=== PATIENT | female | born 1940 ===

== ENCOUNTER 2019-01-24 06:04 | Inpatient (IN) | payer OTHER ==
[2019-01-24] MEDS ORDERED: fentaNYL CITRATE 250 MCG/5 ML VIAL ONE (07:09)
[2019-01-24] MEDS ORDERED: PROPOFOL 20 ML ONE ×14 (07:09→12:03)
[2019-01-24] MEDS ORDERED: VANCOMYCIN 1,000 MG VIAL (RESTRICTED TO ID ONLY) ONE (07:10)
[2019-01-24] MEDS ORDERED: SUCCINYLCHOLINE CHLORIDE 200 MG/10 ML SYRINGE ONE (07:10)
[2019-01-24] MEDS ORDERED: ceFAZolin SODIUM 1 GM VIAL ONE ×3 (07:10→17:50)
[2019-01-24] MEDS ORDERED: TRANEXAMIC ACID 1000 MG/10 ML VIAL ONE ×2 (07:10→10:12)
[2019-01-24] MEDS ORDERED: DEXAMETHASONE SOD PHOSPHATE 4 MG/1 ML VIAL ONE (07:10)
[2019-01-24] MEDS ORDERED: ONDANSETRON 4 MG/2 ML VIAL ONE (07:10)
[2019-01-24] MEDS ORDERED: ROCURONIUM BROMIDE 50 MG/5 ML SYRINGE ONE (07:10)
[2019-01-24] MEDS ORDERED: LIDOCAINE HCL/PF 2% SDV 5ML VIAL ONE (07:10)
[2019-01-24] MEDS ORDERED: BENZOIN TINCTURE SWABSTICK TP ONE ×2 (07:34→12:39)
[2019-01-24] MEDS ORDERED: THROMBIN (BOVINE) 5,000 UNIT VIAL TP ONE ×2 (07:35→09:09)
[2019-01-24] MEDS ORDERED: HEPARIN NA (PORCINE) 5,000 UNITS/ML 1ML VIAL ONE (07:36)
[2019-01-24] MEDS ORDERED: VANCOMYCIN 1,000 MG VIAL (RESTRICTED TO ID ONLY) IVPB ONE (07:45)
[2019-01-24] MEDS ORDERED: ceFAZolin SODIUM 1 GM VIAL IVPB ONE (08:20)
[2019-01-24] MEDS ORDERED: NEOSTIGMINE METHYLSULFATE 0.5 MG/1 ML - 10 ML MDV ONE (10:04)
[2019-01-24] MEDS ORDERED: GLYCOPYRROLATE 0.2 MG/1 ML VIAL ONE (10:04)
[2019-01-24] MEDS ORDERED: EPHEDRINE SULFATE/0.9% NACL/PF 50 MG/10 ML SYRINGE NR ONE (10:52)
--- NOTE | 2019-01-24 11:50 | PN ---
Progress Note (short form) - Note Progress Note: 78F POD #0 s/p: 1. L1, L2, L3, L4, L5, S1 laminectomies 2. L1, L2, L3, L4, L5, S1 osteotomies (facetectomies) 3. L1-S1 posterior instrumentation 4. T11-S1 posterolateral arthrodesis 5. Durotomy repair x 2 6. Bone allograft 7. Bone autograft 8. Bone marrow aspiration 9. Complex wound closure (30cm) -Admit to ICU post-op. -Pain control: per anesthesia team; NO NSAID's. -DVT PPx: -Mechanical only: VENTURA's, SCD's. -Chemical: None. -Incentive spirometry q15 min. -NPO until flatus. -[place] care; d/c when ambulating. -Post-op Ancef x 3 doses. -PT/OT/Rehab, OOB. -WBAT B/L LE. -No bending, lifting (>5 lbs), or twisting for 9-12 months. -Care per ICU & medical hospitalist Dr. Garcia. -Discharge planning: f/u 7-10 days after discharge at [facility] [place] office; call for appointment; . -Will follow. Teo Harmon MD (Orthopaedic Surgery).
--- NOTE | 2019-01-24 11:53 | OP ---
Operative Note - Note: Operative Date: 01/24/19 Pre-Operative Diagnosis: Severity of illness: 4. 1. Adjacent level disease. 2. Previous lumbar spinal fusion. 3. Multilevel spinal stenosis. 4. Spondylolisethesis. 5. Radiculopathy. 6. Claudication. 7. Neurological decline; fall risk Operation: 1. Removal of hardware. 2. Inspection of fusion mass. 3. L1, L2, L3 , L4, L5, S1 laminectomies. 4. L1, L2, L3, L4, L5, S1 osteotomies ( facetectomies). 5. L1-S1 posterior instrumentation. 6. T11-S1 posterolateral arthrodesis. 7. Durotomy repair. 8. Bone allograft. 9. Bone autograft. 10. Bone marrow aspiration. 11. Complex wound closure (30cm) Post-Operative Diagnosis: Same as Pre-op Surgeon: Teo Harmon Pot Liner: Tai Harmon Anesthesiologist/DEVELOPMENTAL EDUCATION INSTRUCTOR: Allyssa Marie Anesthesia: General Specimens Removed: Bone, soft tissue, old hardware Estimated Blood Loss (mls): 1,070 Drains & Tubes with Location: 1 x superficial HemoVac Blood Volume Replaced (mls): 375 (Cell Saver) Fluid Volume Replaced (mls): 2,000 (Crystalloid) Operative Report Dictated: Yes
[2019-01-24] MEDS ORDERED: SODIUM CHLORIDE 0.9% P/F 10 ML VIAL IJ ONE (11:55)
[2019-01-24] MEDS ORDERED: BUPIVACAINE LIPOSOME/PF (EXPAREL) 266 MG/20 ML VIAL ONE (12:10)
[2019-01-24] MEDS ORDERED: BUPIVACAINE HCL/PF 0.25% (2.5MG/ML) 10 ML VIAL ONE (12:12)
[2019-01-24] MEDS ORDERED: BUPIVACAINE LIPOSOME/PF (EXPAREL) 266 MG/20 ML VIAL NR ONE (12:15)
[2019-01-24] MEDS ORDERED: BUPIVACAINE HCL/PF 0.25% (2.5MG/ML) 10 ML VIAL IJ ONE (12:15)
[2019-01-24] MEDS ORDERED: ONDANSETRON 4 MG/2 ML VIAL IVPUSH PRN ×2 (12:31→13:27)
[2019-01-24] MEDS ORDERED: LACTATED RINGERS SOLUTION 1,000 ML IV SCH (12:45)
[2019-01-24] MEDS ORDERED: HYDROmorphone *PCA* 10MG/50ML DISP.SYRIN PCA SCH (14:30)
--- NOTE | 2019-01-24 14:30 | OP ---
DATE OF OPERATION: DATE OF DICTATION: 01/24/2019 SURGEON: Teo Harmon MD LEATHER FINISHER: Tai Harmon MD PREOPERATIVE DIAGNOSIS: Lumbar spine stenosis L3-4 and L2-3 with associated kyphosis and segmental instability. POSTOPERATIVE DIAGNOSIS: Lumbar spine stenosis L3-4 and L2-3 with associated kyphosis and segmental instability. OPERATION PERFORMED: 1. Removal of hardware. 2. Inspection of fusion mass. 3. Left laminectomy with undercutting superior facetectomy L2, 3, 4, and 5. 4. Right-sided laminectomy with undercutting and facetectomy L2, 3, 4, 5, S1. 5. Incidental durotomy and repair. 6. Escoto Price osteotomy L2, 3. 7. Pedicle screw instrumentation L1-S1. 8. Posterolateral arthrodesis L1-S1 left and right-hand side. 9. Use of bone marrow aspirate concentrate and biplanar fluoroscopy. 10. Use of Cell Saver bone marrow aspirate concentrate. 11. Use of autologous bone graft from same wound, liquid sugar fortifier with allograft. ANESTHESIA: General. BLOOD LOSS: Approximately 1 L. Cell Saver blood was given back. Patient remained stable throughout. DESCRIPTION OF PROCEDURE: Patient correctly identified. Brought to the operating room. Lumbar spine with prepped and draped in a routine manner with Betadine scrub solution, wiped off with alcohol, DuraPrep applied. A time-out was called. Imaging was available for intraoperative evaluation. Kefzol 2 g, vancomycin 1 g was given preoperatively, and 1 g of tranexamic acid and then this was repeated again about an hour and a half later. As the Ancef was repeat, another gram given intraoperatively at the time of seating the pedicle screws. With the patient in prone position, all appropriate bony points padded. The lumbosacral was prepped, draped in the routine manner with Betadine scrub solution, wiped off with alcohol, DuraPrep applied and then a window drape applied. A midline incision was utilized. The dissection was taken through the skin, subcutaneous tissue to the tip of the spinous process exposing the bone extensively from T12 all the way down to S1. The dissection was taken out laterally, that is subperiosteally down the spinous process lamina, over the facet joints, out to the transverse process, and out to the tip of the transverse processes. The entire region, both in the intra transverse plane both left and right side, was packed with sponges. Hemostasis was achieved as best we could as we went along. A severe stenosis was noted as per the imaging at L3-4 and 2-3. We elected, as had been planned, to revise the laminae of L4 and L5 to gain access adequately to the entire thecal sac. The thecal sac was exposed completely from L1-S1 in the following manner. We used a central decompression of laminectomy using Leksell rongeurs and Kerrison upcuts. Once the central portion of the dura was exposed , the lateral sides of the vertebral canal were imploded inward this because of the adherence stuck down dura to the bone bed. Longitudinal osteotomies were performed splitting each level, the pars intra-articularis as well as the appropriate inferior facets to expose the upright facets. This enabled us to do a very adequate decompression from L1-S1 both left and right-hand side. Two small, 1-mm, tears of the dura occurred at about the level of the L5-S1 disk. This was as a result of the adherence of thick scar tissue onto the dura. These were repaired very adequately with a single 4-0 Nurolon suture at this level and then Valsalva maneuver performed revealed a complete seal of both of the repair of the sides thus completing the incidental durotomy and repair. Now that the decompression had been completely performed and the entire theca was free, pedicle screws were seated from L1 right down to S1. The original screws had been removed. This was an old Danek system. The fusion mass had been inspected, and it was a little concerned about the solidity of the actual fusion mass. It was not quite as solid as I expected, and for that reason, we extended the fusion from L1 all the way down to S1. Pedicle screw instrumentation combined with fixation over the rods into the tulips. Once the screws had been tested with intraoperative neural monitoring, the screw seating with the utilization of anatomic guidelines combined with lateral fluoroscopic x- rays to ensure that the correct seating of the pedicle screws was noted. Neural monitoring revealed completely safe levels. All screws up to around about 20 except in the left L5, which was at 12. Those rods were contoured appropriately, fixed to the tulips with appropriate caps. Torque device was utilized to tightened the caps onto the rods. One Crosslink applied. This gave a very rigid, solid fixation. Once this had been completed, the posterolateral arthrodesis was then completed by packing the intra transverse plane both left and right hand side with autologous and expanded allograft chips with some putty combined with demineralized strips of bone, which were soaked in stem cells harvested from the left posterior ilium, that is BMAC , bone marrow aspirate concentrate, aspirating 120 mL spun down for the CD34 cells. These layered down with the bone graft in the intra transverse plane accordingly. No complications. The wounds were thoroughly lavaged throughout the operation. The retractors were released every 15-20 minutes. The dura was once again re- inspected and found to be completely dry. We placed some Surgicel combined with fibrin glue onto the epidural space just to ensure that our suture lines were solidly held. This was a 30cm complex wound closure in 4 layers, muscle 1 Vicryl interrupted sutures, fascia 1 Vicryl interrupted sutures, subcutaneous 1-0 and 2-0 Vicryl in layers, and skin 3-0 Monocryl with Steri-Strips. Drainage, 1/2-inch Hemovac brought out superiorly x1. Overall comment, difficult problem and case in terms of the thecal stenosis at 2 levels but found to be 3 levels. All went well. No complications. Patient will be nursed in the ICU. MD MEL Copeland/[id number] MTDD
[2019-01-24] MEDS ORDERED: HYDROmorphone *PCA* 10MG/50ML DISP.SYRIN ONE (14:33)
[2019-01-24 14:51] LABS: HEMATOCRIT 30.5 % (32.4-45.2); HEMOGLOBIN 10.3 GM/dL (10.7-15.3); MCH 32.3 pg (25.7-33.7); MCHC 33.7 g/dl (32.0-36.0); MEAN CELL VOLUME 95.9 fl (80-96); MEAN PLT VOLUME 8.4 fl (7.5-11.1); PLATELET COUNT 157 K/MM3 (134-434); RBC 3.18 M/mm3 (3.60-5.2); RDW 13.3 % (11.6-15.6); WHITE BLOOD COUNT 18.3 K/mm3 (4.0-10.0)
[2019-01-24] MEDS ORDERED: ACETAMINOPHEN INJECTION 100 ML IVPB ONE (15:09)
[2019-01-24] MEDS: ACETAMINOPHEN 1000 MG/100 ML VIAL (NON FORMULARY) IVPB PRN ×2 (15:14→23:11)
[2019-01-24 15:15] LABS: BLOOD UREA NITROGEN 23.4 mg/dL (7-18); CREATININE 1.5 mg/dL (0.55-1.3)
[2019-01-24] MEDS: LACTATED RINGERS SOLUTION 1,000 ML IV SCH ×2 (15:30→23:11)
[2019-01-24] MEDS: CEFAZOLIN 1 GM/D5W 1 GM/50 ML BAG IVPB SCH ×2 (18:41→23:29)
--- NOTE | 2019-01-24 19:08 | CONSULT ---
Consult Consult Specialty:: IM Reason for Consultation:: post-op medical management - History Source History Provided By: Patient, Family Member - Alcohol/Substance Use Hx Alcohol Use: No - Smoking History Smoking history: Never smoked Home Medications - Allergies Allergies/Adverse Reactions: Allergies Allergy/AdvReac Type Severity Reaction Status Date / Time No Known Drug Allergies Allergy Verified 01/21/19 14:04 strawberries Allergy "itchy" Uncoded 01/21/19 14:04 - Home Medications Home Medications: Ambulatory Orders Aspirin Coated [Ecotrin -] 81 mg PO DAILY 01/21/19 Hydrochlorothiazide [Hctz -] 12.5 mg PO DAILY 01/21/19 Metoprolol Succinate 50 mg PO DAILY 01/21/19 Oxycodone HCl/Acetaminophen [Oxycodone-Acetaminophen 5-325] 1 each PO PRN PRN Cyanocobalamin [Vitamin B12 -] 1,000 mcg PO DAILY 01/24/19 Docusate Sodium [Colace] 100 mg PO DAILY 01/24/19 Famotidine [Pepcid] 40 mg PO DAILY 01/24/19 Folic Acid 0.8 mg PO DAILY 01/24/19 Multivit-Min/Iron/Folic/Lutein [Centrum Silver Women Tablet] 1 each PO DAILY Family Disease History - Family Disease History Family History: Unremarkable Review of Systems - Review of Systems Constitutional: reports: Lethargy Eyes: reports: No Symptoms HENT: reports: No Symptoms Neck: reports: No Symptoms Cardiovascular: reports: No Symptoms Respiratory: reports: No Symptoms Gastrointestinal: reports: No Symptoms Genitourinary: reports: No Symptoms Musculoskeletal: reports: Back Pain Integumentary: reports: No Symptoms Neurological: reports: No Symptoms Hematology/Lymphatic: reports: No Symptoms Psychiatric: reports: No Symptoms Pain Intensity: 8 Physical Exam Vital Signs: Vital Signs Temperature 97.4 F L 01/24/19 18:09 Pulse Rate 79 01/24/19 18:09 Respiratory Rate 16 01/24/19 18:09 Blood Pressure 105/53 L 01/24/19 18:09 O2 Sat by Pulse Oximetry (%) 100 01/24/19 18:00 Constitutional: Yes: Well Nourished, Mild Distress Eyes: Yes: WNL HENT: Yes: WNL Neck: Yes: WNL Cardiovascular: Yes: WNL Respiratory: Yes: WNL Gastrointestinal: Yes: Hypoactive Bowel Sounds Renal/: Yes: WNL Musculoskeletal: Yes: Back Pain, Joint Stiffness Extremities: Yes: WNL Edema: No Peripheral Pulses WNL: Yes Integumentary: Yes: WNL Wound/Incision: Yes: Clean/Dry, Well Approximated Neurological: Yes: WNL ...Motor Strength: WNL Psychiatric: Yes: WNL Labs: CBC, BMP 01/24/19 13:45 01/24/19 13:45 Assessment/Plan 78 yo lady with PMH of Previous lumbar spinal fusion, Multilevel spinal stenosis , Spondylolisethesis, Radiculopathy, Claudication now S/P Operation: 1. Removal of hardware. 2. Inspection of fusion mass. 3. L1, L2, L3 , L4, L5, S1 laminectomies. 4. L1, L2, L3, L4, L5, S1 osteotomies ( facetectomies). 5. L1-S1 posterior instrumentation. 6. T11-S1 posterolateral arthrodesis. 7. Durotomy repair. 8. Bone allograft. 9. Bone autograft. 10. Bone marrow aspiration. 11. Complex wound closure . cont pain management. incentive spirometry. -GI, DVT prophylaxis. as per avi no chemical prophylaxis. VENTURA's. -leucocytosis: probably reactive to pain. afebrile. will monitor. -anemia: acute on chronic from CKD. post-op anemia contributing? keep Hb>8. will monitor. -YUMI on CKD III: avoid NSAIDs and nephrotoxins when possible. -HTN: on toprol XL 50 mg daily. -ID: oscar-operatively covered with cefazolin. -NPO until has flatus -PT/OT/OOB as tolerated -ICU care appreciated. likely will be able to downgrade to regular floor tomorrow. -assessment and plan discussed with pt and family at bedside. labs and meds reviewed.
--- NOTE | 2019-01-24 22:14 | CONSULT ---
Consultation: CONSULT SERVICE: ICU Resident HISTORY OF PRESENT ILLNESS: Briefly 78yo F with PMHx previous lumbar fusion, lumbar radiculopathy, claudication of lower extremities who presents today s/p lumbar spine surgery with durotomy repair and hardward removal. Pt's EBL was 1,070cc with 375cc of CellSaver with 2L of crystalloid. Pt reports having chronic weakness in her upper extremities which are stable since prior to her surgery with R>L in weakness at baseline. Pt reports her pain is well controlled at this time and is using the WINDING MACHINE OPERATOR pump. Pt denies any nausea, weakness, numbness/tingling in her lower extremities or other complaints at this time. REVIEW OF SYSTEMS: As per HPI PHYSICAL EXAMINATION Vital Signs - 24 hr 01/24/19 01/24/19 01/24/19 07:12 13:26 13:40 Temperature 97.8 F 97.5 F L Pulse Rate 61 79 77 Respiratory 20 14 16 Rate Blood Pressure 147/73 85/44 L 120/64 O2 Sat by Pulse 98 99 100 Oximetry (%) 01/24/19 01/24/19 01/24/19 13:55 14:10 14:25 Temperature Pulse Rate 75 66 88 Respiratory 14 14 16 Rate Blood Pressure 108/66 111/60 94/58 L O2 Sat by Pulse 100 99 99 Oximetry (%) 01/24/19 01/24/19 01/24/19 14:35 14:40 14:55 Temperature Pulse Rate 72 72 99 H Respiratory 16 16 16 Rate Blood Pressure 114/71 114/71 138/70 O2 Sat by Pulse 100 100 100 Oximetry (%) 01/24/19 01/24/19 01/24/19 15:05 15:10 15:25 Temperature Pulse Rate 99 H 78 94 H Respiratory 16 16 14 Rate Blood Pressure 138/70 107/75 99/64 O2 Sat by Pulse 99 100 100 Oximetry (%) 01/24/19 01/24/19 01/24/19 15:35 15:50 16:20 Temperature Pulse Rate 80 69 72 Respiratory 16 14 16 Rate Blood Pressure 95/58 L 90/77 93/64 O2 Sat by Pulse 100 99 99 Oximetry (%) 01/24/19 01/24/19 01/24/19 16:50 17:20 17:35 Temperature Pulse Rate 70 68 78 Respiratory 16 14 16 Rate Blood Pressure 101/63 108/54 L 100/50 L O2 Sat by Pulse 99 99 100 Oximetry (%) 01/24/19 01/24/19 18:00 18:09 Temperature 97.8 F 97.4 F L Pulse Rate 80 79 Respiratory 16 16 Rate Blood Pressure 95/58 L 105/53 L O2 Sat by Pulse 100 Oximetry (%) GENERAL: NAD, Awake, alert, and fully oriented HEENT: NC/AT, ANA PAULA, EOMI, MMM NECK: No JVD LUNGS: CTA bilaterally however poor inspiratory effort. No wheezes, and no crackles. No accessory muscle use. HEART: RRR, normal S1 and S2 without murmur ABDOMEN: Soft, Nt/ND, hypoactive bowel sounds, no guarding, MUSCULOSKELETAL: Surgical dressing with hemovac in place on back EXTREMITIES: 2+ pulses, warm, well-perfused. No calf tenderness. No peripheral edema. NEUROLOGICAL: Strength 4/5 in LUE however strength 3+/5 in RUE (baseline per patient), b/l LExt with strength 3/5 however limited due to pain at this time, sensation intact throughout PSYCHIATRIC: Cooperative. Good eye contact. Appropriate mood and affect. SKIN: Warm, dry, no rashes Laboratory Results 01/24/19 01/24/19 01/24/19 06:20 08:07 13:45 WBC 18.3 H RBC 3.18 L Hgb 10.3 L Hct 30.5 L MCV 95.9 MCH 32.3 MCHC 33.7 RDW 13.3 Plt Count 157 MPV 8.4 Sodium Potassium Chloride Carbon Dioxide Anion Gap BUN Creatinine Est GFR (CKD-EPI)AfAm Est GFR (CKD-EPI)NonAf Random Glucose Calcium Blood Type O POSITIVE O POSITIVE Antibody Screen Negative Crossmatch IS Only See Detail 01/24/19 13:45 WBC RBC Hgb Hct MCV MCH MCHC RDW Plt Count MPV Sodium 141 Potassium 4.0 Chloride 108 H Carbon Dioxide 27 Anion Gap 6 L BUN 23.4 H Creatinine 1.5 H Est GFR (CKD-EPI)AfAm 37.74 Est GFR (CKD-EPI)NonAf 32.56 Random Glucose 171 H Calcium 8.0 L Blood Type Antibody Screen Crossmatch IS Only Active Medications Generic Name Dose Route Start Last Admin Trade Name Freq PRN Reason Stop Dose Admin Acetaminophen 1,000 mg 01/24/19 14:24 01/24/19 15:14 Ofirmev Injection - IVPB 1,000 mg Q6H PRN Administration PAIN LEVEL 7 - 10 Hydrochlorothiazide 12.5 mg 01/25/19 10:00 Hctz - PO DAILY ULIS Hydromorphone HCl 10 mg 01/24/19 14:30 01/24/19 14:35 Hydromorphone 10 Mg/50 Ml-Ns WINDING MACHINE OPERATOR 01/25/19 14:29 10 mg WINDING MACHINE OPERATOR LUIS Administration Protocol Lactated Ringer's 1,000 mls @ 125 mls/hr 01/24/19 13:30 01/24/19 15:30 Lactated Ringers Solution IV 300 mls ASDIR LUIS Administration Cefazolin Sodium 1 gm in 50 mls @ 100 mls/hr 01/24/19 17:00 01/24/19 18:41 Ancef 1 Gm Premixed Ivpb - IVPB 01/25/19 05:29 Not Given Q6H LUIS Metoprolol Succinate 50 mg 01/25/19 10:00 Toprol Xl - PO DAILY LUIS Ondansetron HCl 4 mg 01/24/19 12:31 Zofran Injection IVPUSH Q6H PRN NAUSEA AND/OR VOMITING Ondansetron HCl 4 mg 01/24/19 13:27 Zofran Injection IVPUSH Q6H PRN NAUSEA AND/OR VOMITING Ranitidine HCl 300 mg 01/25/19 10:00 Zantac - PO DAILY LUIS ASSESSMENT/PLAN: POD #0 of lumbar spine procedure Anemia of chronic disease Leukocytosis 2/2 to post-op changes Acute on chronic renal insufficiency HTN Pt is to remain flat until morning due to durotomy repair --Activity to be cleared by surgery Leukocytosis and anemia likely post-operative changes Pain control with WINDING MACHINE OPERATOR pump to continue Incentive spirometer to be ordered once able to raise from flat position Perioperative Ancef to continue Continue home dose antihypertensives: HCTZ 12.5mg qdaily Toprol XL 50mg qdaily FEN: Fluids: LR @125cc/hr while npo Electrolyte abnormalities: Monitor while NPO Nutrition: NPO while flat and advance as per surgery PPX: DVT - SCDs for now GI - Zantac Dispo: Monitor in ICU overnight due to frequent neurochecks; watch for dural leak manifesting as headache Case discussed with primary team Jorge Person, DO - IM PGY-3 Visit type - Emergency Visit Emergency Visit: No - New Patient This patient is new to me today: Yes Date on this admission: 01/24/19 - Critical Care Critical Care patient: Yes Total Critical Care Time (in minutes): 35 Critical Care Statement: The care of this patient involved high complexity decision making to prevent further life threatening deterioration of the patient 's condition and/or to evaluate & treat vital organ system(s) failure or risk of failure.
[2019-01-24] MEDS: CEFAZOLIN 1 GM in DEXTROSE 5%-WATER - 50 ML IVPB SCH (23:36)
[2019-01-25] MEDS ORDERED: ceFAZolin SODIUM 1 GM VIAL ONE (06:06)
[2019-01-25] MEDS ORDERED: DEXTROSE 5%-WATER - 50 ML IVPB ONE (06:07)
[2019-01-25] MEDS: CEFAZOLIN 1 GM in DEXTROSE 5%-WATER - 50 ML IVPB SCH (06:08)
[2019-01-25] MEDS: LACTATED RINGERS SOLUTION 1,000 ML IV SCH ×4 (06:12→19:08)
[2019-01-25 07:25] LABS: HEMATOCRIT 26.3 % (32.4-45.2); HEMOGLOBIN 8.9 GM/dL (10.7-15.3); MCH 32.6 pg (25.7-33.7); MCHC 33.7 g/dl (32.0-36.0); MEAN CELL VOLUME 96.6 fl (80-96); MEAN PLT VOLUME 8.8 fl (7.5-11.1); PLATELET COUNT 136 K/MM3 (134-434); RBC 2.72 M/mm3 (3.60-5.2); RDW 13.4 % (11.6-15.6); WHITE BLOOD COUNT 19.3 K/mm3 (4.0-10.0)
[2019-01-25 07:48] LABS: BLOOD UREA NITROGEN 28.1 mg/dL (7-18); CALCIUM 8.1 mg/dL (8.5-10.1); CREATININE 1.5 mg/dL (0.55-1.3); POTASSIUM 4.9 mmol/L (3.5-5.1)
[2019-01-25] MEDS ORDERED: RANITIDINE HCL 150 MG TABLET (FP) PO SCH (10:00)
[2019-01-25] MEDS ORDERED: HYDROCHLOROTHIAZIDE 12.5 MG CAPSULE (FP) PO SCH (10:00)
--- NOTE | 2019-01-25 10:09 | PN ---
Progress Note, Physician Chief Complaint: back pain, nausea denies chest pain, palpitations, vomiting, diarrhea - Current Medication List Current Medications: Active Medications Acetaminophen (Ofirmev Injection -) 1,000 mg IVPB Q6H PRN PRN Reason: PAIN LEVEL 7 - 10 Last Admin: 01/24/19 23:11 Dose: 1,000 mg Hydrochlorothiazide (Hctz -) 12.5 mg PO DAILY [facility] Hydromorphone HCl (Hydromorphone 10 Mg/50 Ml-Ns) 10 mg GRAIN GRADER GRAIN GRADER LUIS; Protocol Stop: 01/25/19 14:29 Last Admin: 01/24/19 14:35 Dose: 10 mg Lactated Ringer's (Lactated Ringers Solution) 1,000 mls @ 125 mls/hr IV ASDIR LUIS Last Admin: 01/25/19 06:12 Dose: 125 mls/hr Metoprolol Succinate (Toprol Xl -) 50 mg PO DAILY [facility] Ondansetron HCl (Zofran Injection) 4 mg IVPUSH Q6H PRN PRN Reason: NAUSEA AND/OR VOMITING Ondansetron HCl (Zofran Injection) 4 mg IVPUSH Q6H PRN PRN Reason: NAUSEA AND/OR VOMITING Ranitidine HCl (Zantac -) 300 mg PO DAILY [facility] - Objective Vital Signs: Vital Signs Temperature 98 F 01/25/19 06:00 Pulse Rate 85 01/25/19 06:00 Respiratory Rate 16 01/25/19 06:00 Blood Pressure 124/56 L 01/25/19 06:00 O2 Sat by Pulse Oximetry (%) 100 01/24/19 22:00 Constitutional: Yes: Well Nourished Eyes: Yes: WNL HENT: Yes: WNL Neck: Yes: WNL Cardiovascular: Yes: WNL Respiratory: Yes: WNL Gastrointestinal: Yes: WNL Genitourinary: Yes: WNL Musculoskeletal: Yes: Back Pain Extremities: Yes: WNL Edema: No Peripheral Pulses WNL: Yes Integumentary: Yes: WNL Wound/Incision: Yes: Clean/Dry, Well Approximated Neurological: Yes: WNL ...Motor Strength: WNL Psychiatric: Yes: WNL Labs: CBC, BMP 01/25/19 05:35 01/25/19 05:35 Assessment/Plan 78 yo lady with PMH of Previous lumbar spinal fusion, Multilevel spinal stenosis , Spondylolisethesis, Radiculopathy, Claudication now S/P 1. Removal of hardware. 2. Inspection of fusion mass. 3. L1, L2, L3, L4, L5 , S1 laminectomies. 4. L1, L2, L3, L4, L5, S1 osteotomies ( facetectomies). 5. L1-S1 posterior instrumentation. 6. T11-S1 posterolateral arthrodesis. 7. Durotomy repair. 8. Bone allograft. 9. Bone autograft. 10. Bone marrow aspiration. 11. Complex wound closure . cont pain management. incentive spirometry POD#1. -GI, DVT prophylaxis. as per surgejo no chemical prophylaxis. VENTURA's. -leucocytosis: probably reactive to pain. afebrile. will monitor. -anemia: acute on chronic from CKD. post-op blood loss contributing. keep Hb>8. will monitor. -YUMI on CKD III: avoid NSAIDs and nephrotoxins when possible. -HTN: on toprol XL 50 mg daily, HCTZ 12.5 mg daily. -ID: oscar-operatively covered with cefazolin. -PT/OT/OOB as tolerated -ICU care appreciated. -assessment and plan discussed with pt. labs and meds reviewed.
[2019-01-25] MEDS: ACETAMINOPHEN 1000 MG/100 ML VIAL (NON FORMULARY) IVPB PRN (10:21)
[2019-01-25] MEDS ORDERED: HYDROmorphone HCl 2 MG/ML VIAL IVPB PRN (10:45)
--- NOTE | 2019-01-25 10:51 | PN ---
Progress Note, Physician Chief Complaint: s/p L2-5 fusion under general anesthesia post op day one History of Present Illness: IV PRIMARY HEALTH ORGANISATION MANAGER for post op pain control - Current Medication List Current Medications: Active Medications Acetaminophen (Ofirmev Injection -) 1,000 mg IVPB Q6H PRN PRN Reason: PAIN LEVEL 7 - 10 Last Admin: 01/25/19 10:21 Dose: 1,000 mg Hydrochlorothiazide (Hctz -) 12.5 mg PO DAILY [facility] Last Admin: 01/25/19 10:17 Dose: 12.5 mg Lactated Ringer's (Lactated Ringers Solution) 1,000 mls @ 125 mls/hr IV ASDIR [facility] Last Admin: 01/25/19 06:12 Dose: 125 mls/hr Metoprolol Succinate (Toprol Xl -) 50 mg PO DAILY [facility] Last Admin: 01/25/19 10:18 Dose: 50 mg Ondansetron HCl (Zofran Injection) 4 mg IVPUSH Q6H PRN PRN Reason: NAUSEA AND/OR VOMITING Ondansetron HCl (Zofran Injection) 4 mg IVPUSH Q6H PRN PRN Reason: NAUSEA AND/OR VOMITING Ranitidine HCl (Zantac -) 300 mg PO DAILY [facility] Last Admin: 01/25/19 10:18 Dose: 300 mg - Objective Vital Signs: Vital Signs Temperature 98 F 01/25/19 06:00 Pulse Rate 85 01/25/19 06:00 Respiratory Rate 16 01/25/19 06:00 Blood Pressure 124/56 L 01/25/19 06:00 O2 Sat by Pulse Oximetry (%) 100 01/24/19 22:00 Constitutional: Yes: Well Nourished Cardiovascular: Yes: WNL Respiratory: Yes: WNL Gastrointestinal: Yes: WNL Neurological: Yes: Confusion Labs: CBC, BMP 01/25/19 05:35 01/25/19 05:35 Assessment/Plan Patient was confused, asking if she had surgery yet, did not appreciate proper use of the PRIMARY HEALTH ORGANISATION MANAGER, complained about pain. Will discontinue PRIMARY HEALTH ORGANISATION MANAGER and order dilaudid IVPB PRN. Otherwise no adverse anesthetic complications. Dept of anesthesia will sign off care at this time unless there is a problem with pain control.
--- NOTE | 2019-01-25 11:31 | PN ---
Teaching Attending Note Name of Resident: Andressa Escalona ATTENDING PHYSICIAN STATEMENT I saw and evaluated the patient. I reviewed the resident's note and discussed the case with the resident. I agree with the resident's findings and plan as documented. SUBJECTIVE: Patient seen and examined in the ICU. Awake and alert. Reports significant post-op pain. 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 No CP or SOB. No acute events overnight. Intake & Output 01/22/19 01/23/19 01/24/19 01/25/19 23:59 23:59 23:59 23:59 Intake Total 2975 1510 Output Total 1475 610 Balance 1500 900 Weight 151 lb 8 oz Last Vital Signs Temp Pulse Resp BP Pulse Ox 98 F 85 16 124/56 L 100 01/25/19 06:00 01/25/19 06:00 01/25/19 06:00 01/25/19 06:00 01/24/19 22:00 Active Medications Acetaminophen (Ofirmev Injection -) 1,000 mg IVPB Q6H PRN PRN Reason: PAIN LEVEL 7 - 10 Last Admin: 01/25/19 10:21 Dose: 1,000 mg Hydrochlorothiazide (Hctz -) 12.5 mg PO DAILY [facility] Last Admin: 01/25/19 10:17 Dose: 12.5 mg Hydromorphone HCl (Dilaudid Vial -) 1 mg IVPB Q4H PRN PRN Reason: PAIN LEVEL 1-5 Lactated Ringer's (Lactated Ringers Solution) 1,000 mls @ 125 mls/hr IV ASDIR [facility] Last Admin: 01/25/19 06:12 Dose: 125 mls/hr Metoprolol Succinate (Toprol Xl -) 50 mg PO DAILY [facility] Last Admin: 01/25/19 10:18 Dose: 50 mg Ondansetron HCl (Zofran Injection) 4 mg IVPUSH Q6H PRN PRN Reason: NAUSEA AND/OR VOMITING Ranitidine HCl (Zantac -) 300 mg PO DAILY [facility] Last Admin: 01/25/19 10:18 Dose: 300 mg GENERAL: NAD, Awake, alert, and fully oriented HEENT: NC/AT, ANA PAULA, EOMI, MMM NECK: No JVD LUNGS: Clear. No wheezes, and no crackles. No accessory muscle use. HEART: RRR, normal S1 and S2 without murmur ABDOMEN: Soft, Nt/ND, hypoactive bowel sounds, no guarding, MUSCULOSKELETAL: Surgical dressing with hemovac in place on back EXTREMITIES: 2+ pulses, warm, well-perfused. No calf tenderness. No peripheral edema. NEUROLOGICAL: 4/5 LUE, 5/5 RUE, intact LE, sensation intact throughout PSYCHIATRIC: Cooperative. Good eye contact. Appropriate mood and affect. SKIN: Warm, dry, no rashes Laboratory Results - last 24 hr 01/24/19 01/24/19 01/25/19 13:45 13:45 05:35 WBC 18.3 H 19.3 H RBC 3.18 L 2.72 L Hgb 10.3 L 8.9 L Hct 30.5 L 26.3 L MCV 95.9 96.6 H MCH 32.3 32.6 MCHC 33.7 33.7 RDW 13.3 13.4 Plt Count 157 136 MPV 8.4 8.8 Sodium 141 Potassium 4.0 Chloride 108 H Carbon Dioxide 27 Anion Gap 6 L BUN 23.4 H Creatinine 1.5 H Est GFR (CKD-EPI)AfAm 37.74 Est GFR (CKD-EPI)NonAf 32.56 Random Glucose 171 H Calcium 8.0 L 01/25/19 05:35 WBC RBC Hgb Hct MCV MCH MCHC RDW Plt Count MPV Sodium 141 Potassium 4.9 Chloride 107 Carbon Dioxide 28 Anion Gap 6 L BUN 28.1 H Creatinine 1.5 H Est GFR (CKD-EPI)AfAm 37.48 Est GFR (CKD-EPI)NonAf 32.34 Random Glucose 124 H Calcium 8.1 L ASSESSMENT/PLAN: POD#1: 1. Removal of hardware. 2. Inspection of fusion mass. 3. L1, L2, L3, L4, L5, S1 laminectomies. 4. L1, L2, L3, L4, L5, S1 osteotomies (facetectomies). 5. L1-S1 posterior instrumentation. 6. T11-S1 posterolateral arthrodesis. 7. Durotomy repair. 8. Bone allograft. 9. Bone autograft. 10. Bone marrow aspiration. 11. Complex wound closure (30cm) Anemia of chronic disease Leukocytosis Acute on chronic renal insufficiency HTN Pain control VTE prophylaxis O2 as needed Incentive Spirometry Post-op ABX coverage Monitor WBC IVF Floor Dr Camarillo Critical care time spent in reviewing chart, evaluating patient and formulating plan - 36 minutes.
--- NOTE | 2019-01-25 11:49 | PN ---
Physical Exam: SUBJECTIVE: Patient seen and examined at bedside. No acute events overnight. Patient reports she slept "ok" the night before. Endorses back pain that is currently limiting her motion however denies any other pain. Patient currently has SENIOR SCIENCE CONSULTANT pump. Plan for today is to get patient up at out of bed. Will f/u with Dr. Harmon about when patient can be transferred to floor. OBJECTIVE: Vital Signs Period Temp Pulse Resp BP Sys/Leo Pulse Ox Last 24 Hr 97.4 F-98 F 66-99 14-20 85-138/44-77 99-100 GENERAL: The patient is awake, alert, and fully oriented, in no acute distress. HEAD: Normal with no signs of trauma. EYES: PERRL, extraocular movements intact, sclera anicteric, conjunctiva clear. ENT: moist mucous membranes. NECK: Trachea midline, full range of motion, supple. LUNGS: CTA bilaterally however poor inspiratory effort. No wheezes, and no crackles. No accessory muscle use. HEART: Regular rate and rhythm, S1, S2 without murmur. ABDOMEN: Soft, nontender, nondistended, hypoactive bowel sounds, no guarding. MUSCULOSKELETAL: Surgical dressing with hemovac in place on back EXTREMITIES: 2+ pulses, warm, well-perfused, no edema. NEUROLOGICAL: Strength 4/5 in LUE however strength 3+/5 in RUE (baseline per patient), b/l LE extremities with strength 3/5 however limited due to pain at this time, sensation intact throughout SKIN: Warm, dry, normal turgor, no rashes or lesions noted Laboratory Results - last 24 hr 01/24/19 01/24/19 01/25/19 13:45 13:45 05:35 WBC 18.3 H 19.3 H RBC 3.18 L 2.72 L Hgb 10.3 L 8.9 L Hct 30.5 L 26.3 L MCV 95.9 96.6 H MCH 32.3 32.6 MCHC 33.7 33.7 RDW 13.3 13.4 Plt Count 157 136 MPV 8.4 8.8 Sodium 141 Potassium 4.0 Chloride 108 H Carbon Dioxide 27 Anion Gap 6 L BUN 23.4 H Creatinine 1.5 H Est GFR (CKD-EPI)AfAm 37.74 Est GFR (CKD-EPI)NonAf 32.56 Random Glucose 171 H Calcium 8.0 L 07/30/19 05:35 WBC RBC Hgb Hct MCV MCH MCHC RDW Plt Count MPV Sodium 141 Potassium 4.9 Chloride 107 Carbon Dioxide 28 Anion Gap 6 L BUN 28.1 H Creatinine 1.5 H Est GFR (CKD-EPI)AfAm 37.48 Est GFR (CKD-EPI)NonAf 32.34 Random Glucose 124 H Calcium 8.1 L Active Medications Generic Name Dose Route Start Last Admin Trade Name Freq PRN Reason Stop Dose Admin Acetaminophen 1,000 mg 01/24/19 14:24 01/25/19 10:21 Ofirmev Injection - IVPB 1,000 mg Q6H PRN Administration PAIN LEVEL 7 - 10 Hydrochlorothiazide 12.5 mg 01/25/19 10:00 01/25/19 10:17 Hctz - PO 12.5 mg DAILY [facility] Administration Hydromorphone HCl 1 mg 01/25/19 10:45 Dilaudid Vial - IVPB Q4H PRN PAIN LEVEL 1-5 Lactated Ringer's 1,000 mls @ 125 mls/hr 01/24/19 13:30 01/25/19 06:12 Lactated Ringers Solution IV 125 mls/hr ASDIR [facility] Administration Metoprolol Succinate 50 mg 01/25/19 10:00 01/25/19 10:18 Toprol Xl - PO 50 mg DAILY [facility] Administration Ondansetron HCl 4 mg 01/24/19 12:31 Zofran Injection IVPUSH Q6H PRN NAUSEA AND/OR VOMITING Ranitidine HCl 300 mg 01/25/19 10:00 01/25/19 10:18 Zantac - PO 300 mg DAILY [facility] Administration ASSESSMENT/PLAN: Ms. Sorto is an 79yo F with PMHx previous lumbar fusion, lumbar radiculopathy , claudication of lower extremities who presents today s/p lumbar spine surgery with durotomy repair and hardware removal. Today is POD #1. Neurologic Plan to get patient out of bed today -Physical therapy consulted Patient reporting more pain today -continue SENIOR SCIENCE CONSULTANT pump -Start valium 2.5mg for additional pain control Cardiovascular HTN Continue home dose antihypertensives: HCTZ 12.5mg qdaily Toprol XL 50mg qdaily Pulmonary - Incentive spirometer Renal Acute on chronic renal insufficiency -Cr was slightly elevated at 1.5, but patient was also volume depleted -continue to replete fluids with LR@125cc/hr -Repeat Cr is 1.1 Heme Anemia of chronic disease Leukocytosis 2/2 to post-op changes ID -continue perioperative Ancef FEN: Fluids: LR @125cc/hr while npo Electrolyte abnormalities: Monitor while NPO Nutrition: advance as per surgery PPX: DVT - SCDs for now GI - Zantac Dispo: While patient in ICU will continue frequent neurochecks; watch for dural leak manifesting as headache. Will f/u with Dr. Harmon about when patient can be transferred to floors. Case discussed with primary team Visit type - Emergency Visit Emergency Visit: No - New Patient This patient is new to me today: Yes Date on this admission: 01/25/19 - Critical Care Critical Care patient: Yes Total Critical Care Time (in minutes): 40 Critical Care Statement: The care of this patient involved high complexity decision making to prevent further life threatening deterioration of the patient 's condition and/or to evaluate & treat vital organ system(s) failure or risk of failure. ATTENDING PHYSICIAN STATEMENT I saw and evaluated the patient. I reviewed the resident's note and discussed the case with the resident. I agree with the resident's findings and plan as documented. SUBJECTIVE: OBJECTIVE: ASSESSMENT AND PLAN:
[2019-01-25] MEDS ORDERED: diazePAM 2 MG TABLET PO PRN (13:13)
[2019-01-25 14:22] LABS: BLOOD UREA NITROGEN 22.9 mg/dL (7-18); CALCIUM 7.6 mg/dL (8.5-10.1); CREATININE 1.1 mg/dL (0.55-1.3); POTASSIUM 4.9 mmol/L (3.5-5.1)
[2019-01-25] MEDS ORDERED: ONDANSETRON 4 MG/2 ML VIAL IVPUSH PRN (17:46)
[2019-01-25] MEDS ORDERED: ACETAMINOPHEN 1000 MG/100 ML VIAL (NON FORMULARY) IVPB PRN (17:46)
[2019-01-25] MEDS: HYDROmorphone HCl 2 MG/ML VIAL IVPB PRN (20:28)
[2019-01-25] MEDS: diazePAM 2 MG TABLET PO PRN (22:44)
[2019-01-26] MEDS: HYDROmorphone HCl 2 MG/ML VIAL IVPB PRN ×3 (05:57→14:26)
[2019-01-26 07:51] LABS: HEMATOCRIT 22.3 % (32.4-45.2); HEMOGLOBIN 7.5 GM/dL (10.7-15.3); MCH 32.5 pg (25.7-33.7); MCHC 33.8 g/dl (32.0-36.0); MEAN PLT VOLUME 8.4 fl (7.5-11.1); PLATELET COUNT 113 K/MM3 (134-434); RBC 2.32 M/mm3 (3.60-5.2); RDW 13.6 % (11.6-15.6); WHITE BLOOD COUNT 18.1 K/mm3 (4.0-10.0)
[2019-01-26 08:47] LABS: BLOOD UREA NITROGEN 20.7 mg/dL (7-18); CALCIUM 8.3 mg/dL (8.5-10.1); CREATININE 1.2 mg/dL (0.55-1.3); MAGNESIUM 1.7 mg/dL (1.8-2.4); PHOSPHOROUS 2.5 mg/dL (2.5-4.9); POTASSIUM 4.3 mmol/L (3.5-5.1)
[2019-01-26] MEDS: LACTATED RINGERS SOLUTION 1,000 ML IV SCH (10:40)
[2019-01-26] MEDS: HYDROCHLOROTHIAZIDE 12.5 MG CAPSULE (FP) PO SCH (10:47)
[2019-01-26] MEDS: RANITIDINE HCL 150 MG TABLET (FP) PO SCH (10:47)
[2019-01-26] MEDS: diazePAM 2 MG TABLET PO PRN (13:29)
--- NOTE | 2019-01-26 19:57 | PN ---
Progress Note, Physician Chief Complaint: back pain, nausea denies chest pain, palpitations, vomiting, diarrhea - Current Medication List Current Medications: Active Medications Acetaminophen (Ofirmev Injection -) 1,000 mg IVPB Q8H PRN PRN Reason: PAIN LEVEL 1-5 Diazepam (Valium -) 2 mg PO Q6H PRN PRN Reason: PAIN LEVEL 6-10 Stop: 01/28/19 13:14 Last Admin: 01/26/19 13:29 Dose: 2 mg Hydrochlorothiazide (Hctz -) 12.5 mg PO DAILY [facility] Last Admin: 01/26/19 10:47 Dose: 12.5 mg Hydromorphone HCl (Dilaudid Vial -) 1 mg IVPB Q4H PRN PRN Reason: PAIN LEVEL 1-5 Last Admin: 01/26/19 14:26 Dose: 1 mg Lactated Ringer's (Lactated Ringers Solution) 1,000 mls @ 125 mls/hr IV ASDIR [facility] Last Admin: 01/26/19 10:40 Dose: 125 mls/hr Metoprolol Succinate (Toprol Xl -) 50 mg PO DAILY [facility] Last Admin: 01/26/19 10:47 Dose: 50 mg Ondansetron HCl (Zofran Injection) 4 mg IVPUSH Q6H PRN PRN Reason: NAUSEA AND/OR VOMITING Ranitidine HCl (Zantac -) 300 mg PO DAILY [facility] Last Admin: 01/26/19 10:47 Dose: 300 mg - Objective Vital Signs: Vital Signs Temperature 100.4 F H 01/26/19 18:45 Pulse Rate 97 H 01/26/19 18:45 Respiratory Rate 18 01/26/19 18:45 Blood Pressure 128/55 L 01/26/19 18:45 O2 Sat by Pulse Oximetry (%) 97 01/26/19 09:00 Constitutional: Yes: Well Nourished, No Distress, Calm Eyes: Yes: WNL HENT: Yes: WNL Neck: Yes: WNL Cardiovascular: Yes: WNL Respiratory: Yes: WNL Gastrointestinal: Yes: WNL Genitourinary: Yes: WNL Musculoskeletal: Yes: Back Pain Extremities: Yes: WNL Edema: No Peripheral Pulses WNL: Yes Integumentary: Yes: WNL Wound/Incision: Yes: Clean/Dry, Well Approximated Neurological: Yes: WNL ...Motor Strength: WNL Psychiatric: Yes: WNL Labs: CBC, BMP 01/26/19 07:02 01/26/19 07:02 Assessment/Plan 78 yo lady with PMH of Previous lumbar spinal fusion, Multilevel spinal stenosis , Spondylolisethesis, Radiculopathy, Claudication now S/P 1. Removal of hardware. 2. Inspection of fusion mass. 3. L1, L2, L3, L4, L5 , S1 laminectomies. 4. L1, L2, L3, L4, L5, S1 osteotomies ( facetectomies). 5. L1-S1 posterior instrumentation. 6. T11-S1 posterolateral arthrodesis. 7. Durotomy repair. 8. Bone allograft. 9. Bone autograft. 10. Bone marrow aspiration. 11. Complex wound closure . cont pain management. incentive spirometry POD#2. -GI, DVT prophylaxis. as per surgey no chemical prophylaxis. VENTURA's. -leucocytosis, fever: UA, urine cx, CXR requested. -anemia: acute on chronic from CKD. post-op blood loss contributing. keep Hb>8. will transfuse one unit PRBC. -YUMI on CKD III: avoid NSAIDs and nephrotoxins when possible. improved. -HTN: on toprol XL 50 mg daily, HCTZ 12.5 mg daily. -ID: oscar-operatively covered with cefazolin. -PT/OT/OOB as tolerated -assessment and plan discussed with pt and family labs and meds reviewed. phone calls answered throughout the day. 25 min
--- NOTE | 2019-01-26 20:19 | PATH ---
Surgical Pathology Report Patient Name: DASIA HELTON Med. Rec. #: [id number] /Age/Gender: 1940 (Age: 78) / F Account: [id number] Location: [facility] MED/SURG Taken: 01/24/2019 Received: 01/24/2019 Reported: 01/26/2019 Physicians: Tai Harmon M.D. Specimen(s) Received A: MOLE FROM BACK B: HARDWARE Clinical History Spinal stenosis Final Diagnosis A. SKIN, MOLE FROM BACK, EXCISION: INFLAMED SEBORRHEIC KERATOSIS. B. HARDWARE, REMOVAL: SURGICAL HARDWARE. MACROSCOPIC DIAGNOSIS. Electronically Signed Dasia Tejeda M.D. Gross Description A. Received in formalin labeled "mole from back," is a 5.5 x 0.9 cm dietrich, elliptical, unoriented portion of skin excised to a 2.0 cm. The epidermal surface displays a central 1.4 x 0.9 cm brown, slightly raised pigmented lesion abutting the radial margins. The base is inked green and the specimen is serially sectioned. Studio Producer sections are submitted in 5 cassettes as follows: 1-undesignated tips; 2-6-lxokagsy and sequentially submitted lesion. B. Received fresh labeled "removed hardware," are 2 santiago metallic, bent rods measuring 5.5 and 6.5 cm in length as well as 12 santiago metallic screws ranging from 0.5-7.0 cm in length. No soft tissue is present. No sections are submitted, gross only. /01/25/2019 saudi01/25/2019
[2019-01-26] MEDS: ACETAMINOPHEN 1000 MG/100 ML VIAL (NON FORMULARY) IVPB PRN (20:20)
[2019-01-27] MEDS: HYDROmorphone HCl 2 MG/ML VIAL IVPB PRN ×4 (02:07→23:13)
[2019-01-27 02:10] LABS: EPI CELLS 0.7 /HPF (0-5/HPF); HYALINE CASTS 1 /lpf (0-8); PH,URINE 7.5 (5.0-8.0); URINE APPEARANCE CLEAR; URINE BILIRUBIN NEGATIVE (NEGATIVE); URINE COLOR YELLOW; URINE GLUCOSE (UA) NEGATIVE (NEGATIVE); URINE KETONE NEGATIVE (NEGATIVE); URINE LEUK ESTERASE NEGATIVE (NEGATIVE); URINE NITRITE NEGATIVE (NEGATIVE); URINE PROTEIN NEGATIVE (NEGATIVE); URINE RBC 2 /hpf (0-4); URINE WBC 1 /hpf (0-5)
[2019-01-27] MEDS: LACTATED RINGERS SOLUTION 1,000 ML IV SCH ×2 (04:10→14:40)
[2019-01-27] MEDS: ACETAMINOPHEN 1000 MG/100 ML VIAL (NON FORMULARY) IVPB PRN (04:25)
[2019-01-27 06:51] LABS: BASO % 0.1 % (0-2.0); EOS % 0.2 % (0-4.5); HEMOGLOBIN 8.9 GM/dL (10.7-15.3); MCH 32.1 pg (25.7-33.7); MCHC 34.3 g/dl (32.0-36.0); MEAN CELL VOLUME 93.5 fl (80-96); MEAN PLT VOLUME 8.9 fl (7.5-11.1); MONO % 6.9 % (3.8-10.2); NEUT % 85.8 % (42.8-82.8); PLATELET COUNT 108 K/MM3 (134-434); RBC 2.78 M/mm3 (3.60-5.2); RDW 14.6 % (11.6-15.6); WHITE BLOOD COUNT 17.6 K/mm3 (4.0-10.0)
[2019-01-27] MEDS: MORPHINE SULFATE 2 MG/ML VIAL IVPUSH PRN ×2 (06:53→20:15)
[2019-01-27 07:05] LABS: BLOOD UREA NITROGEN 18.8 mg/dL (7-18); CALCIUM 8.2 mg/dL (8.5-10.1); POTASSIUM 3.5 mmol/L (3.5-5.1)
--- NOTE | 2019-01-27 10:24 | PN ---
Progress Note, Physician Chief Complaint: back pain, nausea denies chest pain, palpitations, vomiting, diarrhea - Current Medication List Current Medications: Active Medications Acetaminophen (Ofirmev Injection -) 1,000 mg IVPB Q8H PRN PRN Reason: PAIN LEVEL 1-5 Last Admin: 01/27/19 04:25 Dose: 1,000 mg Diazepam (Valium -) 2 mg PO Q6H PRN PRN Reason: PAIN LEVEL 6-10 Stop: 01/28/19 13:14 Last Admin: 01/26/19 13:29 Dose: 2 mg Hydrochlorothiazide (Hctz -) 12.5 mg PO DAILY [facility] Last Admin: 01/26/19 10:47 Dose: 12.5 mg Hydromorphone HCl (Dilaudid Vial -) 1 mg IVPB Q4H PRN PRN Reason: PAIN LEVEL 1-5 Last Admin: 01/27/19 02:07 Dose: 1 mg Lactated Ringer's (Lactated Ringers Solution) 1,000 mls @ 125 mls/hr IV ASDIR [facility] Last Admin: 01/27/19 04:10 Dose: 125 mls/hr Metoprolol Succinate (Toprol Xl -) 50 mg PO DAILY [facility] Last Admin: 01/26/19 10:47 Dose: 50 mg Morphine Sulfate (Morphine Sulfate) 1 mg IVPUSH Q6H PRN PRN Reason: PAIN LEVEL 6-10 Last Admin: 01/27/19 06:53 Dose: 1 mg Ondansetron HCl (Zofran Injection) 4 mg IVPUSH Q6H PRN PRN Reason: NAUSEA AND/OR VOMITING Ranitidine HCl (Zantac -) 300 mg PO DAILY [facility] Last Admin: 01/26/19 10:47 Dose: 300 mg - Objective Vital Signs: Vital Signs Temperature 97.8 F 01/27/19 06:00 Pulse Rate 64 01/27/19 06:00 Respiratory Rate 20 01/27/19 06:00 Blood Pressure 118/50 L 01/27/19 06:00 O2 Sat by Pulse Oximetry (%) 97 01/26/19 09:00 Constitutional: Yes: Well Nourished, No Distress, Calm Eyes: Yes: WNL HENT: Yes: WNL Neck: Yes: WNL Cardiovascular: Yes: WNL Respiratory: Yes: WNL Gastrointestinal: Yes: WNL Genitourinary: Yes: WNL Musculoskeletal: Yes: Back Pain Extremities: Yes: WNL Edema: No Peripheral Pulses WNL: Yes Integumentary: Yes: WNL Wound/Incision: Yes: Clean/Dry, Well Approximated, Dressing Dry and Intact Neurological: Yes: WNL Psychiatric: Yes: WNL Labs: CBC, BMP 01/27/19 05:45 01/27/19 05:45 Assessment/Plan 78 yo lady with PMH of Previous lumbar spinal fusion, Multilevel spinal stenosis , Spondylolisethesis, Radiculopathy, Claudication now S/P 1. Removal of hardware. 2. Inspection of fusion mass. 3. L1, L2, L3, L4, L5 , S1 laminectomies. 4. L1, L2, L3, L4, L5, S1 osteotomies ( facetectomies). 5. L1-S1 posterior instrumentation. 6. T11-S1 posterolateral arthrodesis. 7. Durotomy repair. 8. Bone allograft. 9. Bone autograft. 10. Bone marrow aspiration. 11. Complex wound closure . cont pain management. incentive spirometry POD#3. -GI, DVT prophylaxis. as per surgey no chemical prophylaxis. VENTURA's. -leucocytosis, fever post-op: UA, urine cx, CXR requested. UA is negative. CXR with atelectasis but no acute infection. fever resolved with tylenol. WBC is trending down. -anemia: acute on chronic from CKD. post-op blood loss contributing. keep Hb>8. one unit PRBC transfused on 01/26. levels acceptable today. -YUMI on CKD III: avoid NSAIDs and nephrotoxins when possible. pre-renal azotemia: resolved with IV fluids -HTN: on toprol XL 50 mg daily, HCTZ 12.5 mg daily. -ID: oscar-operatively covered with cefazolin. -PT/OT/OOB as tolerated -assessment and plan discussed with pt and family labs and meds reviewed. phone calls answered throughout the day. 25 min
[2019-01-27] MEDS: diazePAM 2 MG TABLET PO PRN ×2 (11:09→23:13)
[2019-01-27] MEDS: HYDROCHLOROTHIAZIDE 12.5 MG CAPSULE (FP) PO SCH (11:09)
[2019-01-27] MEDS: RANITIDINE HCL 150 MG TABLET (FP) PO SCH (11:09)
[2019-01-28] MEDS: LACTATED RINGERS SOLUTION 1,000 ML IV SCH ×3 (01:35→16:24)
[2019-01-28] MEDS: ACETAMINOPHEN 1000 MG/100 ML VIAL (NON FORMULARY) IVPB PRN (01:59)
[2019-01-28] MEDS: MORPHINE SULFATE 2 MG/ML VIAL IVPUSH PRN ×2 (03:03→23:37)
[2019-01-28] MEDS: HYDROmorphone HCl 2 MG/ML VIAL IVPB PRN ×3 (06:20→16:21)
[2019-01-28] MEDS: diazePAM 2 MG TABLET PO PRN ×3 (06:20→14:02)
[2019-01-28] MEDS: RANITIDINE HCL 150 MG TABLET (FP) PO SCH (10:58)
[2019-01-28] MEDS: HYDROCHLOROTHIAZIDE 12.5 MG CAPSULE (FP) PO SCH (10:58)
--- NOTE | 2019-01-28 12:53 | PN ---
Progress Note (short form) - Note Progress Note: POD#5 C/O incisional pain No leg pain Awake fully orientated. Was up yesterday and walked. Wound dry Drain removed New dressing applied. Abd Soft passing flatus. Neuro Fully intact. PLAN Pain Mx D/C planning ` PT mobilize
--- NOTE | 2019-01-28 15:01 | PN ---
Progress Note, Physician Chief Complaint: back pain, nausea denies chest pain, palpitations, vomiting, diarrhea - Current Medication List Current Medications: Active Medications Acetaminophen (Ofirmev Injection -) 1,000 mg IVPB Q8H PRN PRN Reason: PAIN LEVEL 1-5 Last Admin: 01/28/19 01:59 Dose: 1,000 mg Hydrochlorothiazide (Hctz -) 12.5 mg PO DAILY [facility] Last Admin: 01/28/19 10:58 Dose: 12.5 mg Hydromorphone HCl (Dilaudid Vial -) 1 mg IVPB Q4H PRN PRN Reason: PAIN LEVEL 1-5 Last Admin: 01/28/19 10:54 Dose: 1 mg Lactated Ringer's (Lactated Ringers Solution) 1,000 mls @ 125 mls/hr IV ASDIR [facility] Last Admin: 01/28/19 14:07 Dose: 125 mls/hr Metoprolol Succinate (Toprol Xl -) 50 mg PO DAILY [facility] Last Admin: 01/28/19 10:58 Dose: 50 mg Morphine Sulfate (Morphine Sulfate) 1 mg IVPUSH Q6H PRN PRN Reason: PAIN LEVEL 6-10 Last Admin: 01/28/19 03:03 Dose: 1 mg Ondansetron HCl (Zofran Injection) 4 mg IVPUSH Q6H PRN PRN Reason: NAUSEA AND/OR VOMITING Ranitidine HCl (Zantac -) 300 mg PO DAILY [facility] Last Admin: 01/28/19 10:58 Dose: 300 mg - Objective Vital Signs: Vital Signs Temperature 98.4 F 01/28/19 08:36 Pulse Rate 87 01/28/19 08:36 Respiratory Rate 18 01/28/19 08:36 Blood Pressure 125/67 01/28/19 08:36 O2 Sat by Pulse Oximetry (%) 95 01/28/19 09:00 Constitutional: Yes: Well Nourished, No Distress Eyes: Yes: WNL HENT: Yes: WNL Neck: Yes: WNL Cardiovascular: Yes: WNL Respiratory: Yes: WNL Gastrointestinal: Yes: WNL Genitourinary: Yes: WNL Musculoskeletal: Yes: Back Pain Extremities: Yes: WNL Edema: No Peripheral Pulses WNL: Yes Integumentary: Yes: WNL Wound/Incision: Yes: Clean/Dry, Well Approximated Neurological: Yes: WNL Psychiatric: Yes: WNL Labs: CBC, BMP 01/27/19 05:45 01/27/19 05:45 Assessment/Plan 78 yo lady with PMH of Previous lumbar spinal fusion, Multilevel spinal stenosis , Spondylolisethesis, Radiculopathy, Claudication now S/P 1. Removal of hardware. 2. Inspection of fusion mass. 3. L1, L2, L3, L4, L5 , S1 laminectomies. 4. L1, L2, L3, L4, L5, S1 osteotomies ( facetectomies). 5. L1-S1 posterior instrumentation. 6. T11-S1 posterolateral arthrodesis. 7. Durotomy repair. 8. Bone allograft. 9. Bone autograft. 10. Bone marrow aspiration. 11. Complex wound closure . cont pain management. incentive spirometry POD#4. -GI, DVT prophylaxis. as per surgey no chemical prophylaxis. VENTURA's. -leucocytosis, fever post-op: UA, urine cx, CXR requested. UA is negative. CXR with atelectasis but no acute infection. fever resolved with tylenol. -anemia: acute on chronic from CKD. post-op blood loss contributing. keep Hb>8. one unit PRBC transfused on 01/26. levels acceptable today. -YUMI on CKD III: avoid NSAIDs and nephrotoxins when possible. pre-renal azotemia: resolved with IV fluids -HTN: on toprol XL 50 mg daily, HCTZ 12.5 mg daily. -ID: oscar-operatively covered with cefazolin. -PT/OT/OOB as tolerated -assessment and plan discussed with pt and family labs and meds reviewed. phone calls answered throughout the day. DC plan to rehab. auth pending. 25 min
--- NOTE | 2019-01-28 15:07 | OP ---
DATE OF OPERATION: DATE OF DICTATION: 01/28/2019 SURGEON: Teo Harmon MD DRAW FURNACE TENDER: Tai Harmon MD PREOPERATIVE DIAGNOSIS: Adjacent level spinal stenosis with segmental instability; L1-L2, L2-L3, L3-L4, L4-L5. POSTOPERATIVE DIAGNOSIS: Adjacent level spinal stenosis with segmental instability; L1-L2, L2-L3, L3-L4, L4-L5. OPERATION PERFORMED: 1. Removal of hardware. 2. Inspection of fusion mass. 3. Left and right multilevel laminectomies L1 to S1. 4. Left and right multi-lumbar decompression L1 to S1 with associated undercutting superior facetectomy, left and right hand side L1 to S1. 5. Incidental durotomy and repair. 6. L1 to S1 posterior instrumentation with pedicle screws. 7. Posterolateral arthrodesis T11 to S1. 8. Use of biplane fluoroscopy and intraoperative neuromonitoring. 9. Complex wound closure 30 cm. 10. Use of autologous bone graft and chain sales consultant with allograft. 11. Bone marrow aspirate for stem cells harvested from left posterior ilium. ANESTHESIA: General. BLOOD LOSS: 1070 mL Cell Saver given back 375 mL. OPERATION IN DETAIL: Patient was correctly identified, brought into the operating room, placed prone on the Alex table. All bony points padded appropriately. Attention to padding of the eyes and patient was in 10 degrees anti-Trendelenburg positioning. Routine drape with Betadine scrub solution, wiped with alcohol. DuraPrep applied, and window drape applied. Midline incision utilized. Dissection was taken from the tip of the spinous process of T12 right down to the tip of the spinous process of S1. The dissection was taken down the spinous processes laminae over the facet joints, out to the tips of the transverse processes, exposing the entire proximal aspect of the lumbar spine. The instrumented region was managed with unipolar cautery, freed of all soft tissue off the actual hardware appropriately. The hardware was inspected and removed. This was old Danek material, removed without difficulty. This fusion mass was inspected and found to be solid. The fusion itself, however, was flimsy, and it was elected to extend the entire decompression and fusion from L1 to S1. Using Kerrison upcuts as well Leksell rongeurs, the laminae of L5, L4, L3, L2, and L1 of the lumbar spine were resected centrally and then using osteotomes in the plane of the pars interarticularis and inferior facet at each level, the bone was imploded towards the vertebral canal given access to the superior facets. The superior facets and all appropriate soft tissues were then resected both left and right hand side from L1 to S1. Because of the adherence of the dura at the 5 level, 2 small pin-hole dural tears occurred. These were incidental durotomies, and these were repaired with 4-0 nylon. A repeat Valsalva maneuver revealed no leakage. Once the entire decompression had been completed, we elected to go straight ahead with pedicle screw instrumentation from L1 to S1. Each pedicle screw was drawn with a 4.5 drill bit. Each screw was seated to receive a 6 x 45 mm screw. All screws seated, used with direct anatomical alignment, as well as lateral fluoroscopic x-ray. All screws seated were tested with neuromonitoring and found to be completely safe in the neuromonitoring sense, that is all neuromonitoring was well above 15 mA, most were at 20 mA. Once this was ascertained and x-rays were satisfactorily evaluated, combined with evaluation clinically, the rods were fixed with tulips, and her spine straightened into lordosis appropriately. The screw caps applied, and a torque device utilized to tighten the screws. One crosslink applied. The muscles were lifted and retracted posteriorly. A combination of autologous allograft as well as bone marrow aspirate with concentrated cells were all seated into the intertransverse plane accordingly, thus completing the entire laminectomy, decompression and stabilization procedure. The wounds were thoroughly lavaged throughout. Tissues were closed in the complex wound manner with muscle 1 Vicryl, fascia 1 Vicryl, subcutaneous 1 and 2-0 Vicryl, and skin with Monocryl and Steri-Strips. Drainage: No drain was inserted. Operation went well. No complications. Cell Saver blood utilized. MD MEL Copeland/[id number]
[2019-01-28] MEDS: KETOROLAC TROMETHAMINE 15 MG/ML VIAL IVPUSH SCH ×2 (15:28→21:24)
[2019-01-29] MEDS: HYDROmorphone HCl 2 MG/ML VIAL IVPB PRN ×4 (00:55→18:16)
[2019-01-29] MEDS: diazePAM 2 MG TABLET PO PRN ×3 (00:56→21:33)
[2019-01-29] MEDS: MORPHINE SULFATE 2 MG/ML VIAL IVPUSH PRN ×3 (08:17→21:20)
[2019-01-29] MEDS: RANITIDINE HCL 150 MG TABLET (FP) PO SCH (10:01)
[2019-01-29] MEDS: HYDROCHLOROTHIAZIDE 12.5 MG CAPSULE (FP) PO SCH (10:01)
--- NOTE | 2019-01-29 13:09 | PN ---
Progress Note, Physician Chief Complaint: back pain. denies chest pain, palpitations, vomiting, diarrhea - Current Medication List Current Medications: Active Medications Acetaminophen (Ofirmev Injection -) 1,000 mg IVPB Q8H PRN PRN Reason: PAIN LEVEL 1-5 Last Admin: 01/28/19 01:59 Dose: 1,000 mg Diazepam (Valium -) 2 mg PO Q8H PRN PRN Reason: BACK SPASM Last Admin: 01/29/19 10:02 Dose: 2 mg Hydrochlorothiazide (Hctz -) 12.5 mg PO DAILY [facility] Last Admin: 01/29/19 10:01 Dose: 12.5 mg Hydromorphone HCl (Dilaudid Vial -) 1 mg IVPB Q4H PRN PRN Reason: PAIN LEVEL 1-5 Last Admin: 01/29/19 10:02 Dose: 1 mg Lactated Ringer's (Lactated Ringers Solution) 1,000 mls @ 75 mls/hr IV ASDIR [facility] Last Admin: 01/28/19 16:24 Dose: 75 mls/hr Metoprolol Succinate (Toprol Xl -) 50 mg PO DAILY [facility] Last Admin: 01/29/19 10:01 Dose: 50 mg Morphine Sulfate (Morphine Sulfate) 1 mg IVPUSH Q6H PRN PRN Reason: PAIN LEVEL 6-10 Last Admin: 01/29/19 08:17 Dose: 1 mg Ondansetron HCl (Zofran Injection) 4 mg IVPUSH Q6H PRN PRN Reason: NAUSEA AND/OR VOMITING Ranitidine HCl (Zantac -) 300 mg PO DAILY [facility] Last Admin: 01/29/19 10:01 Dose: 300 mg - Objective Vital Signs: Vital Signs Temperature 98.7 F 01/29/19 08:10 Pulse Rate 89 01/29/19 08:10 Respiratory Rate 20 01/29/19 08:10 Blood Pressure 150/74 01/29/19 08:10 O2 Sat by Pulse Oximetry (%) 95 01/28/19 20:52 Constitutional: Yes: Well Nourished, Mild Distress Eyes: Yes: WNL HENT: Yes: WNL Neck: Yes: WNL Cardiovascular: Yes: WNL Respiratory: Yes: WNL Genitourinary: Yes: WNL Musculoskeletal: Yes: Back Pain Extremities: Yes: WNL Edema: No Peripheral Pulses WNL: Yes Integumentary: Yes: WNL Wound/Incision: Yes: Clean/Dry, Well Approximated Psychiatric: Yes: WNL Labs: CBC, BMP 01/27/19 05:45 01/27/19 05:45 Assessment/Plan 78 yo lady with PMH of Previous lumbar spinal fusion, Multilevel spinal stenosis , Spondylolisethesis, Radiculopathy, Claudication now S/P 1. Removal of hardware. 2. Inspection of fusion mass. 3. L1, L2, L3, L4, L5 , S1 laminectomies. 4. L1, L2, L3, L4, L5, S1 osteotomies ( facetectomies). 5. L1-S1 posterior instrumentation. 6. T11-S1 posterolateral arthrodesis. 7. Durotomy repair. 8. Bone allograft. 9. Bone autograft. 10. Bone marrow aspiration. 11. Complex wound closure . cont pain management. not as well controlled today. incentive spirometry POD# 5. -GI, DVT prophylaxis. as per surgey no chemical prophylaxis. VENTURA's. -leucocytosis, fever post-op: UA, urine cx, CXR requested. UA is negative. CXR with atelectasis but no acute infection. fever resolved with tylenol. -anemia: acute on chronic from CKD. post-op blood loss contributing. keep Hb>8. one unit PRBC transfused on 01/26. AM labs ordered. -YUMI on CKD III: avoid NSAIDs and nephrotoxins when possible. pre-renal azotemia: resolved with IV fluids -HTN: on toprol XL 50 mg daily, HCTZ 12.5 mg daily. -ID: oscar-operatively covered with cefazolin. -PT/OT/OOB as tolerated -assessment and plan discussed with pt and family labs and meds reviewed. phone calls answered throughout the day. DC plan to rehab. auth pending. 25 min
[2019-01-29] MEDS: ACETAMINOPHEN 1000 MG/100 ML VIAL (NON FORMULARY) IVPB PRN (13:44)
[2019-01-29] MEDS: LACTATED RINGERS SOLUTION 1,000 ML IV SCH ×2 (18:18→18:29)
[2019-01-30] MEDS: HYDROmorphone HCl 2 MG/ML VIAL IVPB PRN ×4 (00:30→21:46)
[2019-01-30] MEDS: ACETAMINOPHEN 1000 MG/100 ML VIAL (NON FORMULARY) IVPB PRN ×2 (07:23→18:55)
[2019-01-30] MEDS: LACTATED RINGERS SOLUTION 1,000 ML IV SCH ×2 (07:25→16:42)
[2019-01-30 07:31] LABS: BASO % 0.8 % (0-2.0); EOS % 4.4 % (0-4.5); HEMOGLOBIN 9.6 GM/dL (10.7-15.3); LYMPH % 21.4 % (8-40); MCH 32.5 pg (25.7-33.7); MCHC 34.2 g/dl (32.0-36.0); MEAN PLT VOLUME 7.5 fl (7.5-11.1); MONO % 13.4 % (3.8-10.2); PLATELET COUNT 220 K/MM3 (134-434); RBC 2.95 M/mm3 (3.60-5.2); RDW 14.3 % (11.6-15.6); WHITE BLOOD COUNT 8.4 K/mm3 (4.0-10.0)
[2019-01-30 07:48] LABS: CALCIUM 8.3 mg/dL (8.5-10.1); CREATININE 0.9 mg/dL (0.55-1.3); POTASSIUM 3.6 mmol/L (3.5-5.1)
[2019-01-30] MEDS ORDERED: PT OWN MED DRAWER 7, Y5N ONE (09:18)
[2019-01-30] MEDS: HYDROCHLOROTHIAZIDE 12.5 MG CAPSULE (FP) PO SCH (09:23)
[2019-01-30] MEDS: diazePAM 2 MG TABLET PO PRN ×2 (09:24→21:46)
[2019-01-30] MEDS: RANITIDINE HCL 150 MG TABLET (FP) PO SCH (09:24)
--- NOTE | 2019-01-30 18:06 | PN ---
Progress Note, Physician Chief Complaint: back pain. denies chest pain, palpitations, vomiting, diarrhea - Current Medication List Current Medications: Active Medications Acetaminophen (Ofirmev Injection -) 1,000 mg IVPB Q8H PRN PRN Reason: PAIN LEVEL 1-5 Last Admin: 01/30/19 07:23 Dose: 1,000 mg Diazepam (Valium -) 2 mg PO Q8H PRN PRN Reason: BACK SPASM Last Admin: 01/30/19 09:24 Dose: 2 mg Hydrochlorothiazide (Hctz -) 12.5 mg PO DAILY [facility] Last Admin: 01/30/19 09:23 Dose: 12.5 mg Hydromorphone HCl (Dilaudid Vial -) 1 mg IVPB Q4H PRN PRN Reason: PAIN LEVEL 1-5 Last Admin: 01/30/19 15:43 Dose: 1 mg Lactated Ringer's (Lactated Ringers Solution) 1,000 mls @ 75 mls/hr IV ASDIR [facility] Last Admin: 01/30/19 16:42 Dose: Not Given Metoprolol Succinate (Toprol Xl -) 50 mg PO DAILY [facility] Last Admin: 01/30/19 09:23 Dose: 50 mg Ondansetron HCl (Zofran Injection) 4 mg IVPUSH Q6H PRN PRN Reason: NAUSEA AND/OR VOMITING Ranitidine HCl (Zantac -) 300 mg PO DAILY [facility] Last Admin: 01/30/19 09:24 Dose: 300 mg - Objective Vital Signs: Vital Signs Temperature 98.8 F 01/30/19 07:30 Pulse Rate 76 01/30/19 07:30 Respiratory Rate 20 01/30/19 07:30 Blood Pressure 131/60 01/30/19 07:30 O2 Sat by Pulse Oximetry (%) 95 01/29/19 21:00 Constitutional: Yes: Well Nourished, No Distress Eyes: Yes: WNL HENT: Yes: WNL Neck: Yes: WNL Cardiovascular: Yes: WNL Respiratory: Yes: WNL Gastrointestinal: Yes: WNL Genitourinary: Yes: WNL Musculoskeletal: Yes: Back Pain Edema: No Peripheral Pulses WNL: Yes Integumentary: Yes: WNL Wound/Incision: Yes: Clean/Dry, Well Approximated Neurological: Yes: WNL Psychiatric: Yes: WNL Labs: CBC, BMP 01/30/19 06:49 01/30/19 06:49 Assessment/Plan 78 yo lady with PMH of Previous lumbar spinal fusion, Multilevel spinal stenosis , Spondylolisethesis, Radiculopathy, Claudication now S/P 1. Removal of hardware. 2. Inspection of fusion mass. 3. L1, L2, L3, L4, L5 , S1 laminectomies. 4. L1, L2, L3, L4, L5, S1 osteotomies ( facetectomies). 5. L1-S1 posterior instrumentation. 6. T11-S1 posterolateral arthrodesis. 7. Durotomy repair. 8. Bone allograft. 9. Bone autograft. 10. Bone marrow aspiration. 11. Complex wound closure . cont pain management. not as well controlled today. incentive spirometry POD# 6. -GI, DVT prophylaxis. as per surgey no chemical prophylaxis. VENTURA's. -leucocytosis, fever post-op: UA, urine cx, CXR requested. UA is negative. CXR with atelectasis but no acute infection. fever resolved with tylenol. -anemia: acute on chronic from CKD. post-op blood loss contributing. keep Hb>8. one unit PRBC transfused on 01/26. AM labs ordered. -YUMI on CKD III: avoid NSAIDs and nephrotoxins when possible. pre-renal azotemia: resolved with IV fluids -HTN: on toprol XL 50 mg daily, HCTZ 12.5 mg daily. -ID: oscar-operatively covered with cefazolin. -PT/OT/OOB as tolerated -assessment and plan discussed with pt and family at bedside. labs and meds reviewed. phone calls answered throughout the day. DC plan to rehab. auth pending. hopefully tomorrow. 25 min
[2019-01-31] MEDS: HYDROmorphone HCl 2 MG/ML VIAL IVPB PRN ×5 (01:54→22:43)
[2019-01-31] MEDS: diazePAM 2 MG TABLET PO PRN ×3 (05:56→22:43)
[2019-01-31] MEDS: ACETAMINOPHEN 1000 MG/100 ML VIAL (NON FORMULARY) IVPB PRN (05:56)
[2019-01-31] MEDS ORDERED: INSULIN (NOVOLOG) ASPART 100 UNITS/ML 10ML VIAL ONE (07:00)
[2019-01-31] MEDS: HYDROCHLOROTHIAZIDE 12.5 MG CAPSULE (FP) PO SCH (09:46)
[2019-01-31] MEDS: RANITIDINE HCL 150 MG TABLET (FP) PO SCH (09:46)
--- NOTE | 2019-01-31 17:10 | PN ---
Progress Note, Physician Chief Complaint: back pain. denies chest pain, palpitations, vomiting, diarrhea - Current Medication List Current Medications: Active Medications Acetaminophen (Ofirmev Injection -) 1,000 mg IVPB Q8H PRN PRN Reason: PAIN LEVEL 1-5 Last Admin: 01/31/19 05:56 Dose: 1,000 mg Hydrochlorothiazide (Hctz -) 12.5 mg PO DAILY [facility] Last Admin: 01/31/19 09:46 Dose: 12.5 mg Lactated Ringer's (Lactated Ringers Solution) 1,000 mls @ 75 mls/hr IV ASDIR [facility] Last Admin: 01/30/19 16:42 Dose: Not Given Metoprolol Succinate (Toprol Xl -) 50 mg PO DAILY [facility] Last Admin: 01/30/19 09:23 Dose: 50 mg Ondansetron HCl (Zofran Injection) 4 mg IVPUSH Q6H PRN PRN Reason: NAUSEA AND/OR VOMITING Ranitidine HCl (Zantac -) 300 mg PO DAILY [facility] Last Admin: 01/31/19 09:46 Dose: 300 mg - Objective Vital Signs: Vital Signs Temperature 98.1 F 01/31/19 14:00 Pulse Rate 85 01/31/19 14:00 Respiratory Rate 18 01/31/19 14:00 Blood Pressure 107/62 01/31/19 14:00 O2 Sat by Pulse Oximetry (%) 96 01/31/19 09:00 Constitutional: Yes: Well Nourished, No Distress Eyes: Yes: WNL HENT: Yes: WNL Neck: Yes: WNL Cardiovascular: Yes: WNL Respiratory: Yes: WNL Genitourinary: Yes: WNL Musculoskeletal: Yes: Back Pain Extremities: Yes: WNL Edema: No Peripheral Pulses WNL: Yes Integumentary: Yes: WNL Wound/Incision: Yes: Clean/Dry, Well Approximated Neurological: Yes: WNL Psychiatric: Yes: WNL Labs: CBC, BMP 01/30/19 06:49 01/30/19 06:49 Assessment/Plan 78 yo lady with PMH of Previous lumbar spinal fusion, Multilevel spinal stenosis , Spondylolisethesis, Radiculopathy, Claudication now S/P 1. Removal of hardware. 2. Inspection of fusion mass. 3. L1, L2, L3, L4, L5 , S1 laminectomies. 4. L1, L2, L3, L4, L5, S1 osteotomies ( facetectomies). 5. L1-S1 posterior instrumentation. 6. T11-S1 posterolateral arthrodesis. 7. Durotomy repair. 8. Bone allograft. 9. Bone autograft. 10. Bone marrow aspiration. 11. Complex wound closure . cont pain management. not as well controlled today. incentive spirometry POD# 7. -GI, DVT prophylaxis. as per surgey no chemical prophylaxis. VENTURA's. -leucocytosis, fever post-op: UA, urine cx, CXR requested. UA is negative. CXR with atelectasis but no acute infection. fever resolved with tylenol. -anemia: acute on chronic from CKD. post-op blood loss contributing. keep Hb>8. one unit PRBC transfused on 01/26. -YUMI on CKD III: avoid NSAIDs and nephrotoxins when possible. pre-renal azotemia: resolved with IV fluids -HTN: on toprol XL 50 mg daily, HCTZ 12.5 mg daily. -ID: oscar-operatively covered with cefazolin. -PT/OT/OOB as tolerated -assessment and plan discussed with pt and family at bedside. labs and meds reviewed. phone calls answered throughout the day. DC plan to rehab. auth pending. hopefully tomorrow. 25 min
[2019-01-31] MEDS: LACTATED RINGERS SOLUTION 1,000 ML IV SCH (18:26)
[2019-02-01] MEDS: ACETAMINOPHEN 1000 MG/100 ML VIAL (NON FORMULARY) IVPB PRN (01:30)
[2019-02-01] MEDS: HYDROmorphone HCl 2 MG/ML VIAL IVPB PRN ×3 (09:55→22:43)
[2019-02-01] MEDS: RANITIDINE HCL 150 MG TABLET (FP) PO SCH (09:56)
[2019-02-01] MEDS: HYDROCHLOROTHIAZIDE 12.5 MG CAPSULE (FP) PO SCH (09:56)
[2019-02-01] MEDS: diazePAM 2 MG TABLET PO PRN (09:56)
[2019-02-01] MEDS: LACTATED RINGERS SOLUTION 1,000 ML IV SCH (17:43)
[2019-02-02] MEDS: HYDROCHLOROTHIAZIDE 12.5 MG CAPSULE (FP) PO SCH (10:46)
[2019-02-02] MEDS: RANITIDINE HCL 150 MG TABLET (FP) PO SCH (10:46)
[2019-02-02] MEDS ORDERED: PT OWN MED DRAWER 7, Y5N ONE (11:23)
[2019-02-02] MEDS: HYDROmorphone HCl 2 MG/ML VIAL IVPB PRN (16:37)
[2019-02-02] MEDS: LACTATED RINGERS SOLUTION 1,000 ML IV SCH ×2 (16:39→23:27)
--- NOTE | 2019-02-02 17:58 | PN ---
Progress Note, Physician Chief Complaint: back pain. denies chest pain, palpitations, vomiting, diarrhea - Current Medication List Current Medications: Active Medications Acetaminophen (Ofirmev Injection -) 1,000 mg IVPB Q8H PRN PRN Reason: PAIN LEVEL 1-5 Last Admin: 02/01/19 01:30 Dose: 1,000 mg Diazepam (Valium -) 2 mg PO Q8H PRN PRN Reason: BACK SPASM Last Admin: 02/01/19 09:56 Dose: 2 mg Hydrochlorothiazide (Hctz -) 12.5 mg PO DAILY [facility] Last Admin: 02/02/19 10:46 Dose: 12.5 mg Hydromorphone HCl (Dilaudid Vial -) 1 mg IVPB Q4H PRN PRN Reason: PAIN LEVEL 6-10 Last Admin: 02/02/19 16:37 Dose: 1 mg Lactated Ringer's (Lactated Ringers Solution) 1,000 mls @ 75 mls/hr IV ASDIR [facility] Last Admin: 02/02/19 16:39 Dose: Not Given Metoprolol Succinate (Toprol Xl -) 50 mg PO DAILY [facility] Last Admin: 02/02/19 10:46 Dose: 50 mg Ondansetron HCl (Zofran Injection) 4 mg IVPUSH Q6H PRN PRN Reason: NAUSEA AND/OR VOMITING Ranitidine HCl (Zantac -) 300 mg PO DAILY [facility] Last Admin: 02/02/19 10:46 Dose: 300 mg - Objective Vital Signs: Vital Signs Temperature 97.8 F 02/02/19 16:30 Pulse Rate 62 02/02/19 16:30 Respiratory Rate 18 02/02/19 16:30 Blood Pressure 157/75 02/02/19 16:30 O2 Sat by Pulse Oximetry (%) 98 02/01/19 21:00 Constitutional: Yes: Well Nourished, No Distress Eyes: Yes: WNL HENT: Yes: WNL Neck: Yes: WNL Cardiovascular: Yes: WNL Respiratory: Yes: WNL Gastrointestinal: Yes: Hypoactive Bowel Sounds Genitourinary: Yes: WNL Musculoskeletal: Yes: Joint Stiffness Extremities: Yes: WNL Edema: No Peripheral Pulses WNL: Yes Integumentary: Yes: WNL Wound/Incision: Yes: Clean/Dry, Well Approximated, Dressing Dry and Intact Neurological: Yes: WNL Psychiatric: Yes: WNL Labs: CBC, BMP 01/30/19 06:49 01/30/19 06:49 Assessment/Plan 78 yo lady with PMH of Previous lumbar spinal fusion, Multilevel spinal stenosis , Spondylolisethesis, Radiculopathy, Claudication now S/P 1. Removal of hardware. 2. Inspection of fusion mass. 3. L1, L2, L3, L4, L5 , S1 laminectomies. 4. L1, L2, L3, L4, L5, S1 osteotomies ( facetectomies). 5. L1-S1 posterior instrumentation. 6. T11-S1 posterolateral arthrodesis. 7. Durotomy repair. 8. Bone allograft. 9. Bone autograft. 10. Bone marrow aspiration. 11. Complex wound closure . cont pain management. not as well controlled today. incentive spirometry POD# 8. -GI, DVT prophylaxis. as per surgey no chemical prophylaxis. VENTURA's. -leucocytosis, fever post-op: UA, urine cx, CXR requested. UA is negative. CXR with atelectasis but no acute infection. fever resolved with tylenol. -anemia: acute on chronic from CKD. post-op blood loss contributing. keep Hb>8. one unit PRBC transfused on 01/26. -YUMI on CKD III: avoid NSAIDs and nephrotoxins when possible. pre-renal azotemia: resolved with IV fluids -HTN: on toprol XL 50 mg daily, HCTZ 12.5 mg daily. -ID: oscar-operatively covered with cefazolin. -PT/OT/OOB as tolerated -assessment and plan discussed with pt and family at bedside. labs and meds reviewed. phone calls answered throughout the day. DC plan to rehab in progress. auth pending. 25 min
[2019-02-02] MEDS: diazePAM 2 MG TABLET PO PRN (22:35)
[2019-02-02] MEDS: ACETAMINOPHEN 1000 MG/100 ML VIAL (NON FORMULARY) IVPB PRN (23:26)
[2019-02-03] MEDS: HYDROmorphone HCl 2 MG/ML VIAL IVPB PRN ×2 (03:22→11:44)
[2019-02-03] MEDS ORDERED: MAGNESIUM HYDROX 2400MG/30ML ORAL SUSPENSION 30 ML CUP PO ONE (10:30)
[2019-02-03] MEDS: HYDROCHLOROTHIAZIDE 12.5 MG CAPSULE (FP) PO SCH (11:36)
[2019-02-03] MEDS: RANITIDINE HCL 150 MG TABLET (FP) PO SCH (11:36)
[2019-02-03] MEDS: DOCUSATE SODIUM 100 MG CAPSULE (FP) PO SCH ×2 (15:24→21:20)
--- NOTE | 2019-02-03 16:59 | PN ---
Progress Note, Physician Chief Complaint: back pain. denies chest pain, palpitations, vomiting, diarrhea - Current Medication List Current Medications: Active Medications Acetaminophen (Ofirmev Injection -) 1,000 mg IVPB Q8H PRN PRN Reason: PAIN LEVEL 1-5 Last Admin: 02/02/19 23:26 Dose: 1,000 mg Diazepam (Valium -) 2 mg PO Q8H PRN PRN Reason: BACK SPASM Last Admin: 02/02/19 22:35 Dose: 2 mg Docusate Sodium (Colace -) 100 mg PO TID [facility] Last Admin: 02/03/19 15:24 Dose: 100 mg Hydrochlorothiazide (Hctz -) 12.5 mg PO DAILY [facility] Last Admin: 02/03/19 11:36 Dose: 12.5 mg Hydromorphone HCl (Dilaudid Vial -) 1 mg IVPB Q4H PRN PRN Reason: PAIN LEVEL 6-10 Last Admin: 02/03/19 11:44 Dose: 1 mg Metoprolol Succinate (Toprol Xl -) 50 mg PO DAILY [facility] Last Admin: 02/03/19 11:36 Dose: 50 mg Ondansetron HCl (Zofran Injection) 4 mg IVPUSH Q6H PRN PRN Reason: NAUSEA AND/OR VOMITING Ranitidine HCl (Zantac -) 300 mg PO DAILY [facility] Last Admin: 02/03/19 11:36 Dose: 300 mg Senna (Senna -) 2 tab PO HS [facility] - Objective Vital Signs: Vital Signs Temperature 98.2 F 02/03/19 10:00 Pulse Rate 76 02/03/19 10:00 Respiratory Rate 20 02/03/19 10:00 Blood Pressure 118/82 02/03/19 10:00 O2 Sat by Pulse Oximetry (%) 98 02/01/19 21:00 Constitutional: Yes: Well Nourished, No Distress, Calm Eyes: Yes: WNL HENT: Yes: WNL Neck: Yes: WNL Cardiovascular: Yes: WNL Respiratory: Yes: WNL Gastrointestinal: Yes: WNL Genitourinary: Yes: WNL Musculoskeletal: Yes: WNL Extremities: Yes: WNL Edema: No Peripheral Pulses WNL: Yes Wound/Incision: Yes: Clean/Dry, Well Approximated Neurological: Yes: WNL Psychiatric: Yes: WNL Labs: CBC, BMP 01/30/19 06:49 01/30/19 06:49 Assessment/Plan 78 yo lady with PMH of Previous lumbar spinal fusion, Multilevel spinal stenosis , Spondylolisethesis, Radiculopathy, Claudication now S/P 1. Removal of hardware. 2. Inspection of fusion mass. 3. L1, L2, L3, L4, L5 , S1 laminectomies. 4. L1, L2, L3, L4, L5, S1 osteotomies ( facetectomies). 5. L1-S1 posterior instrumentation. 6. T11-S1 posterolateral arthrodesis. 7. Durotomy repair. 8. Bone allograft. 9. Bone autograft. 10. Bone marrow aspiration. 11. Complex wound closure . cont pain management. not as well controlled today. incentive spirometry POD# 9. -GI, DVT prophylaxis. as per surgey no chemical prophylaxis. VENTURA's. -leucocytosis, fever post-op: UA, urine cx, CXR requested. UA is negative. CXR with atelectasis but no acute infection. fever resolved with tylenol. -anemia: acute on chronic from CKD. post-op blood loss contributing. keep Hb>8. one unit PRBC transfused on 01/26. -YUMI on CKD III: avoid NSAIDs and nephrotoxins when possible. pre-renal azotemia: resolved with IV fluids -HTN: on toprol XL 50 mg daily, HCTZ 12.5 mg daily. -ID: oscar-operatively covered with cefazolin. -PT/OT/OOB as tolerated -assessment and plan discussed with pt and daughter at bedside. labs and meds reviewed. phone calls answered throughout the day. DC plan to rehab in progress. auth pending. 25 min
[2019-02-03] MEDS: SENNOSIDES 8.6MG TABLET (FP) PO SCH (21:20)
[2019-02-04] MEDS: ACETAMINOPHEN 1000 MG/100 ML VIAL (NON FORMULARY) IVPB PRN ×2 (04:47→20:19)
[2019-02-04] MEDS: DOCUSATE SODIUM 100 MG CAPSULE (FP) PO SCH ×3 (06:17→21:26)
[2019-02-04 08:18] LABS: BASO % 0.6 % (0-2.0); EOS % 2.2 % (0-4.5); HEMATOCRIT 29.9 % (32.4-45.2); LYMPH % 12.5 % (8-40); MCH 31.6 pg (25.7-33.7); MCHC 33.6 g/dl (32.0-36.0); MEAN CELL VOLUME 93.8 fl (80-96); MEAN PLT VOLUME 7.2 fl (7.5-11.1); MONO % 6.1 % (3.8-10.2); NEUT % 78.6 % (42.8-82.8); PLATELET COUNT 523 K/MM3 (134-434); RBC 3.18 M/mm3 (3.60-5.2); RDW 14.5 % (11.6-15.6); WHITE BLOOD COUNT 14.1 K/mm3 (4.0-10.0)
[2019-02-04 08:46] LABS: BLOOD UREA NITROGEN 13.8 mg/dL (7-18); CALCIUM 8.8 mg/dL (8.5-10.1); POTASSIUM 3.9 mmol/L (3.5-5.1)
[2019-02-04] MEDS: HYDROCHLOROTHIAZIDE 12.5 MG CAPSULE (FP) PO SCH (10:35)
[2019-02-04] MEDS: RANITIDINE HCL 150 MG TABLET (FP) PO SCH (10:35)
[2019-02-04 11:39] VITALS: BMI 27.1
--- NOTE | 2019-02-04 11:49 | RAPID ---
Physical Examination Vital Signs: Vital Signs Temperature 97.5 F L 02/04/19 06:39 Pulse Rate 82 02/04/19 06:39 Respiratory Rate 20 02/04/19 06:39 Blood Pressure 137/72 02/04/19 06:39 O2 Sat by Pulse Oximetry (%) 98 02/01/19 21:00 Labs: CBC, BMP 02/04/19 07:20 02/04/19 07:20 Rapid Response - Rapid Response Assessment: rapid response called overhead. team responded immediately. Pt got out of bed to use bathroom and had sudden onset lightheadedness and weakness. No LOC. No fall. lowered to chair by daughter. pt s/p spine surgery on 01/24. Will notify PCP, Dr. Harmon. BGM: 119 Vitals seated: BP: 142/77 MD:91bpm 100% on RA Rpt vitals supine: BP: 142/75 MD: 88 100% on RA physical exam: Gen: AOx3, wdwn, no acute distress Pulm: CTA B/L no wrr. no accessory m use Cardio: +S1S2 no mrg Neuro: Cranial n 2-12 grossly intact, B/L 5/5 muscle strength Plan: AM labs reviewed will notify PCP continue to monitor pt states she is symptomatically improving
--- NOTE | 2019-02-04 12:31 | PN ---
Progress Note, Physician Chief Complaint: back pain. denies chest pain, palpitations, vomiting, diarrhea - Current Medication List Current Medications: Active Medications Acetaminophen (Ofirmev Injection -) 1,000 mg IVPB Q8H PRN PRN Reason: PAIN LEVEL 1-5 Last Admin: 02/04/19 04:47 Dose: 1,000 mg Docusate Sodium (Colace -) 100 mg PO TID [facility] Last Admin: 02/04/19 06:17 Dose: 100 mg Hydrochlorothiazide (Hctz -) 12.5 mg PO DAILY [facility] Last Admin: 02/04/19 10:35 Dose: 12.5 mg Metoprolol Succinate (Toprol Xl -) 50 mg PO DAILY [facility] Last Admin: 02/04/19 10:35 Dose: 50 mg Ondansetron HCl (Zofran Injection) 4 mg IVPUSH Q6H PRN PRN Reason: NAUSEA AND/OR VOMITING Ranitidine HCl (Zantac -) 300 mg PO DAILY [facility] Last Admin: 02/04/19 10:35 Dose: 300 mg Senna (Senna -) 2 tab PO HS [facility] Last Admin: 02/03/19 21:20 Dose: 2 tab - Objective Vital Signs: Vital Signs Temperature 97.5 F L 02/04/19 06:39 Pulse Rate 82 02/04/19 06:39 Respiratory Rate 20 02/04/19 06:39 Blood Pressure 137/72 02/04/19 06:39 O2 Sat by Pulse Oximetry (%) 98 02/01/19 21:00 Constitutional: Yes: Well Nourished, No Distress Eyes: Yes: WNL HENT: Yes: WNL Neck: Yes: WNL Cardiovascular: Yes: WNL Respiratory: Yes: WNL Gastrointestinal: Yes: WNL ...Rectal Exam: Yes: Deferred Genitourinary: Yes: WNL Breast(s): Yes: WNL Musculoskeletal: Yes: Joint Stiffness Extremities: Yes: WNL Edema: No Peripheral Pulses WNL: Yes Integumentary: Yes: WNL Wound/Incision: Yes: Clean/Dry, Well Approximated, Dressing Dry and Intact Neurological: Yes: WNL ...Motor Strength: WNL Psychiatric: Yes: WNL Labs: CBC, BMP 02/04/19 07:20 02/04/19 07:20 Assessment/Plan 78 yo lady with PMH of Previous lumbar spinal fusion, Multilevel spinal stenosis , Spondylolisethesis, Radiculopathy, Claudication now S/P 1. Removal of hardware. 2. Inspection of fusion mass. 3. L1, L2, L3, L4, L5 , S1 laminectomies. 4. L1, L2, L3, L4, L5, S1 osteotomies ( facetectomies). 5. L1-S1 posterior instrumentation. 6. T11-S1 posterolateral arthrodesis. 7. Durotomy repair. 8. Bone allograft. 9. Bone autograft. 10. Bone marrow aspiration. 11. Complex wound closure . cont pain management. not as well controlled today. incentive spirometry POD# 10. -GI, DVT prophylaxis. as per surgey no chemical prophylaxis. VENTURA's. -leucocytosis, fever post-op: UA, urine cx, CXR requested. UA is negative. CXR with atelectasis but no acute infection. fever resolved with tylenol. -anemia: acute on chronic from CKD. post-op blood loss contributing. keep Hb>8. one unit PRBC transfused on 01/26. -YUMI on CKD III: avoid NSAIDs and nephrotoxins when possible. pre-renal azotemia: resolved with IV fluids -HTN: on toprol XL 50 mg daily, HCTZ 12.5 mg daily. -ID: oscar-operatively covered with cefazolin. -PT/OT/OOB as tolerated -assessment and plan discussed with pt and daughter at bedside. labs and meds reviewed. phone calls answered throughout the day. DC plan to rehab in progress. auth pending. 25 min
[2019-02-04] MEDS: SENNOSIDES 8.6MG TABLET (FP) PO SCH (21:26)
[2019-02-05] MEDS: DOCUSATE SODIUM 100 MG CAPSULE (FP) PO SCH ×3 (05:52→21:32)
[2019-02-05] MEDS: ACETAMINOPHEN 1000 MG/100 ML VIAL (NON FORMULARY) IVPB PRN ×2 (05:52→22:43)
[2019-02-05] MEDS: RANITIDINE HCL 150 MG TABLET (FP) PO SCH (10:12)
[2019-02-05] MEDS: HYDROCHLOROTHIAZIDE 12.5 MG CAPSULE (FP) PO SCH (10:13)
--- NOTE | 2019-02-05 11:44 | PN ---
Progress Note, Physician Chief Complaint: back pain. denies chest pain, palpitations, vomiting, diarrhea - Current Medication List Current Medications: Active Medications Acetaminophen (Ofirmev Injection -) 1,000 mg IVPB Q8H PRN PRN Reason: PAIN LEVEL 1-5 Last Admin: 02/05/19 05:52 Dose: 1,000 mg Docusate Sodium (Colace -) 100 mg PO TID [facility] Last Admin: 02/05/19 05:52 Dose: 100 mg Hydrochlorothiazide (Hctz -) 12.5 mg PO DAILY [facility] Last Admin: 02/05/19 10:13 Dose: 12.5 mg Metoprolol Succinate (Toprol Xl -) 50 mg PO DAILY [facility] Last Admin: 02/05/19 10:13 Dose: 50 mg Ondansetron HCl (Zofran Injection) 4 mg IVPUSH Q6H PRN PRN Reason: NAUSEA AND/OR VOMITING Ranitidine HCl (Zantac -) 300 mg PO DAILY [facility] Last Admin: 02/05/19 10:12 Dose: 300 mg Senna (Senna -) 2 tab PO HS [facility] Last Admin: 02/04/19 21:26 Dose: 2 tab - Objective Vital Signs: Vital Signs Temperature 97.9 F 02/05/19 07:17 Pulse Rate 86 02/05/19 07:17 Respiratory Rate 20 02/05/19 07:17 Blood Pressure 155/79 02/05/19 07:17 O2 Sat by Pulse Oximetry (%) 98 02/01/19 21:00 Constitutional: Yes: Well Nourished, No Distress Eyes: Yes: WNL HENT: Yes: WNL Neck: Yes: WNL Cardiovascular: Yes: WNL Respiratory: Yes: WNL Gastrointestinal: Yes: WNL ...Rectal Exam: Yes: Deferred Genitourinary: Yes: WNL Musculoskeletal: Yes: Muscle Pain Extremities: Yes: WNL Edema: No Peripheral Pulses WNL: Yes Integumentary: Yes: WNL Wound/Incision: Yes: Clean/Dry, Well Approximated Neurological: Yes: WNL ...Motor Strength: WNL Psychiatric: Yes: WNL Labs: CBC, BMP 02/04/19 07:20 02/04/19 07:20 Assessment/Plan 78 yo lady with PMH of Previous lumbar spinal fusion, Multilevel spinal stenosis , Spondylolisethesis, Radiculopathy, Claudication now S/P 1. Removal of hardware. 2. Inspection of fusion mass. 3. L1, L2, L3, L4, L5 , S1 laminectomies. 4. L1, L2, L3, L4, L5, S1 osteotomies ( facetectomies). 5. L1-S1 posterior instrumentation. 6. T11-S1 posterolateral arthrodesis. 7. Durotomy repair. 8. Bone allograft. 9. Bone autograft. 10. Bone marrow aspiration. 11. Complex wound closure . cont pain management. not as well controlled today. incentive spirometry POD# 11. -GI, DVT prophylaxis. as per surgey no chemical prophylaxis. VENTURA's. -leucocytosis, fever post-op: UA, urine cx, CXR requested. UA is negative. CXR with atelectasis but no acute infection. fever resolved with tylenol. -anemia: acute on chronic from CKD. post-op blood loss contributing. keep Hb>8. one unit PRBC transfused on 01/26. -YUMI on CKD III: avoid NSAIDs and nephrotoxins when possible. pre-renal azotemia: resolved with IV fluids -HTN: on toprol XL 50 mg daily, HCTZ 12.5 mg daily. -ID: oscar-operatively covered with cefazolin. -PT/OT/OOB as tolerated -assessment and plan discussed with pt and daughter at bedside. labs and meds reviewed. phone calls answered throughout the day. DC plan to rehab in progress. daughter gave 5 choices. 25 min
[2019-02-05] MEDS: SENNOSIDES 8.6MG TABLET (FP) PO SCH (21:32)
[2019-02-06] MEDS: DOCUSATE SODIUM 100 MG CAPSULE (FP) PO SCH ×4 (06:51→21:12)
[2019-02-06] MEDS: RANITIDINE HCL 150 MG TABLET (FP) PO SCH (11:00)
[2019-02-06] MEDS: HYDROCHLOROTHIAZIDE 12.5 MG CAPSULE (FP) PO SCH (11:00)
[2019-02-06] MEDS: ACETAMINOPHEN 1000 MG/100 ML VIAL (NON FORMULARY) IVPB PRN (11:00)
--- NOTE | 2019-02-06 17:28 | PN ---
Progress Note, Physician Chief Complaint: back pain. denies chest pain, palpitations, vomiting, diarrhea - Current Medication List Current Medications: Active Medications Acetaminophen (Ofirmev Injection -) 1,000 mg IVPB Q8H PRN PRN Reason: PAIN LEVEL 1-5 Last Admin: 02/06/19 11:00 Dose: 1,000 mg Docusate Sodium (Colace -) 100 mg PO TID [facility] Last Admin: 02/06/19 16:00 Dose: Not Given Hydrochlorothiazide (Hctz -) 12.5 mg PO DAILY [facility] Last Admin: 02/06/19 11:00 Dose: 12.5 mg Metoprolol Succinate (Toprol Xl -) 50 mg PO DAILY [facility] Last Admin: 02/06/19 11:00 Dose: 50 mg Ondansetron HCl (Zofran Injection) 4 mg IVPUSH Q6H PRN PRN Reason: NAUSEA AND/OR VOMITING Ranitidine HCl (Zantac -) 300 mg PO DAILY [facility] Last Admin: 02/06/19 11:00 Dose: 300 mg Senna (Senna -) 2 tab PO HS [facility] Last Admin: 02/05/19 21:32 Dose: 2 tab - Objective Vital Signs: Vital Signs Temperature 98.6 F 02/06/19 09:21 Pulse Rate 107 H 02/06/19 09:21 Respiratory Rate 18 02/06/19 09:21 Blood Pressure 128/93 02/06/19 09:21 O2 Sat by Pulse Oximetry (%) 98 02/01/19 21:00 Constitutional: Yes: Well Nourished, No Distress, Calm Eyes: Yes: WNL HENT: Yes: WNL Neck: Yes: WNL Cardiovascular: Yes: WNL Respiratory: Yes: WNL Gastrointestinal: Yes: WNL ...Rectal Exam: Yes: Deferred Genitourinary: Yes: WNL Musculoskeletal: Yes: Joint Stiffness Extremities: Yes: WNL Edema: No Peripheral Pulses WNL: Yes Integumentary: Yes: WNL Wound/Incision: Yes: Clean/Dry, Well Approximated Neurological: Yes: WNL ...Motor Strength: WNL Psychiatric: Yes: WNL Labs: CBC, BMP 02/04/19 07:20 02/04/19 07:20 Assessment/Plan 78 yo lady with PMH of Previous lumbar spinal fusion, Multilevel spinal stenosis , Spondylolisethesis, Radiculopathy, Claudication now S/P 1. Removal of hardware. 2. Inspection of fusion mass. 3. L1, L2, L3, L4, L5 , S1 laminectomies. 4. L1, L2, L3, L4, L5, S1 osteotomies ( facetectomies). 5. L1-S1 posterior instrumentation. 6. T11-S1 posterolateral arthrodesis. 7. Durotomy repair. 8. Bone allograft. 9. Bone autograft. 10. Bone marrow aspiration. 11. Complex wound closure . cont pain management. not as well controlled today. incentive spirometry POD# 12. -GI, DVT prophylaxis. -leucocytosis, fever post-op: UA, urine cx, CXR requested. UA is negative. CXR with atelectasis but no acute infection. fever resolved with tylenol. -anemia: acute on chronic from CKD. post-op blood loss contributing. keep Hb>8. one unit PRBC transfused on 01/26. -YUMI on CKD III: avoid NSAIDs and nephrotoxins when possible. pre-renal azotemia: resolved with IV fluids -HTN: on toprol XL 50 mg daily, HCTZ 12.5 mg daily. -ID: oscar-operatively covered with cefazolin. -PT/OT/OOB as tolerated -assessment and plan discussed with pt and daughter at bedside. labs and meds reviewed. phone calls answered throughout the day. DC plan to rehab in progress. daughter gave 5 choices. awaiting auth. hopefully will DC tomorrow. 25 min
[2019-02-06] MEDS: SENNOSIDES 8.6MG TABLET (FP) PO SCH (21:12)
[2019-02-06] MEDS ORDERED: oxyCODONE HCL 5 MG TABLET ONE (23:13)
[2019-02-06] MEDS: oxyCODONE HCL 5 MG TABLET PO PRN (23:14)
[2019-02-07] MEDS: oxyCODONE HCL 5 MG TABLET PO PRN ×3 (04:42→18:33)
[2019-02-07] MEDS: DOCUSATE SODIUM 100 MG CAPSULE (FP) PO SCH ×3 (05:55→21:50)
[2019-02-07] MEDS: HYDROCHLOROTHIAZIDE 12.5 MG CAPSULE (FP) PO SCH (10:11)
[2019-02-07] MEDS: RANITIDINE HCL 150 MG TABLET (FP) PO SCH (10:12)
--- NOTE | 2019-02-07 14:03 | PN ---
Progress Note, Physician Chief Complaint: back pain. denies chest pain, palpitations, vomiting, diarrhea - Current Medication List Current Medications: Active Medications Acetaminophen (Ofirmev Injection -) 1,000 mg IVPB Q8H PRN PRN Reason: PAIN LEVEL 1-5 Last Admin: 02/06/19 11:00 Dose: 1,000 mg Docusate Sodium (Colace -) 100 mg PO TID [facility] Last Admin: 02/07/19 05:55 Dose: Not Given Hydrochlorothiazide (Hctz -) 12.5 mg PO DAILY [facility] Last Admin: 02/07/19 10:11 Dose: 12.5 mg Metoprolol Succinate (Toprol Xl -) 50 mg PO DAILY [facility] Last Admin: 02/07/19 10:12 Dose: 50 mg Ondansetron HCl (Zofran Injection) 4 mg IVPUSH Q6H PRN PRN Reason: NAUSEA AND/OR VOMITING Oxycodone HCl (Roxicodone -) 5 mg PO Q6H PRN PRN Reason: PAIN 4-8 Last Admin: 02/07/19 10:12 Dose: 5 mg Ranitidine HCl (Zantac -) 300 mg PO DAILY [facility] Last Admin: 02/07/19 10:12 Dose: 300 mg Senna (Senna -) 2 tab PO HS [facility] Last Admin: 02/06/19 21:12 Dose: Not Given - Objective Vital Signs: Vital Signs Temperature 97.9 F 02/07/19 09:05 Pulse Rate 98 H 02/07/19 09:05 Respiratory Rate 20 02/07/19 09:05 Blood Pressure 133/70 02/07/19 09:05 O2 Sat by Pulse Oximetry (%) 98 02/06/19 21:00 Constitutional: Yes: Anxious, Mild Distress Eyes: Yes: WNL HENT: Yes: WNL Neck: Yes: WNL Cardiovascular: Yes: WNL Respiratory: Yes: WNL Gastrointestinal: Yes: WNL ...Rectal Exam: Yes: Deferred Genitourinary: Yes: WNL Musculoskeletal: Yes: Back Pain, Joint Stiffness Extremities: Yes: WNL Edema: No Peripheral Pulses WNL: Yes Integumentary: Yes: WNL Wound/Incision: Yes: Clean/Dry, Well Approximated, Dressing Dry and Intact Neurological: Yes: WNL Psychiatric: Yes: WNL Labs: CBC, BMP 02/04/19 07:20 02/04/19 07:20 Assessment/Plan 78 yo lady with PMH of Previous lumbar spinal fusion, Multilevel spinal stenosis , Spondylolisethesis, Radiculopathy, Claudication now S/P 1. Removal of hardware. 2. Inspection of fusion mass. 3. L1, L2, L3, L4, L5 , S1 laminectomies. 4. L1, L2, L3, L4, L5, S1 osteotomies ( facetectomies). 5. L1-S1 posterior instrumentation. 6. T11-S1 posterolateral arthrodesis. 7. Durotomy repair. 8. Bone allograft. 9. Bone autograft. 10. Bone marrow aspiration. 11. Complex wound closure . cont pain management. not as well controlled today. incentive spirometry POD# 13. -GI, DVT prophylaxis. -leucocytosis, fever post-op: UA, urine cx, CXR requested. UA is negative. CXR with atelectasis but no acute infection. fever resolved with tylenol. -anemia: acute on chronic from CKD. post-op blood loss contributing. keep Hb>8. one unit PRBC transfused on 01/26. -YUMI on CKD III: avoid NSAIDs and nephrotoxins when possible. pre-renal azotemia: resolved with IV fluids -HTN: on toprol XL 50 mg daily, HCTZ 12.5 mg daily. -ID: oscar-operatively covered with cefazolin. -PT/OT/OOB as tolerated -assessment and plan discussed with pt and daughter at bedside. labs and meds reviewed. phone calls answered throughout the day. DC plan to rehab in progress. daughter agrees to f/u with me to [place]. spoke with case management. hopefully DC to rehab tomorrow. 25 min
[2019-02-07] MEDS: SENNOSIDES 8.6MG TABLET (FP) PO SCH (21:51)
[2019-02-07] MEDS: ACETAMINOPHEN 1000 MG/100 ML VIAL (NON FORMULARY) IVPB PRN (21:53)
[2019-02-08] MEDS: oxyCODONE HCL 5 MG TABLET PO PRN ×2 (03:48→10:55)
[2019-02-08] MEDS: DOCUSATE SODIUM 100 MG CAPSULE (FP) PO SCH (06:23)
[2019-02-08] MEDS: ACETAMINOPHEN 1000 MG/100 ML VIAL (NON FORMULARY) IVPB PRN (06:26)
[2019-02-08 07:11] LABS: BASO % 0.6 % (0-2.0); EOS % 2.6 % (0-4.5); HEMATOCRIT 30.6 % (32.4-45.2); HEMOGLOBIN 10.5 GM/dL (10.7-15.3); LYMPH % 18.5 % (8-40); MCH 32.2 pg (25.7-33.7); MCHC 34.4 g/dl (32.0-36.0); MEAN CELL VOLUME 93.8 fl (80-96); NEUT % 65.3 % (42.8-82.8); PLATELET COUNT 644 K/MM3 (134-434); RBC 3.26 M/mm3 (3.60-5.2); RDW 14.2 % (11.6-15.6); WHITE BLOOD COUNT 9.6 K/mm3 (4.0-10.0)
[2019-02-08 07:45] LABS: BLOOD UREA NITROGEN 34.7 mg/dL (7-18); CREATININE 1.7 mg/dL (0.55-1.3); POTASSIUM 4.1 mmol/L (3.5-5.1)
[2019-02-08] MEDS ORDERED: PT OWN MED DRAWER 7, Y5N ONE (10:49)
[2019-02-08] MEDS: HYDROCHLOROTHIAZIDE 12.5 MG CAPSULE (FP) PO SCH (10:55)
[2019-02-08] MEDS: RANITIDINE HCL 150 MG TABLET (FP) PO SCH (10:55)
--- NOTE | 2019-02-08 11:09 | DS ---
Physical Examination Vital Signs: Vital Signs Temperature 98 F 02/08/19 06:52 Pulse Rate 102 H 02/08/19 06:52 Respiratory Rate 20 02/08/19 06:52 Blood Pressure 118/49 L 02/08/19 06:52 O2 Sat by Pulse Oximetry (%) 98 02/07/19 21:00 Constitutional: Yes: Anxious Eyes: Yes: WNL HENT: Yes: WNL Neck: Yes: WNL Cardiovascular: Yes: WNL Respiratory: Yes: WNL Gastrointestinal: Yes: WNL Renal/: Yes: WNL Musculoskeletal: Yes: Back Pain Extremities: Yes: WNL Edema: No Peripheral Pulses WNL: Yes Integumentary: Yes: WNL Wound/Incision: Yes: Clean/Dry, Well Approximated Neurological: Yes: WNL ...Motor Strength: WNL Psychiatric: Yes: WNL Labs: CBC, BMP 02/08/19 05:47 02/08/19 05:47 Discharge Summary Reason For Visit: SPINAL STENOSIS, LUMBAR REGION Hospital Course: 78 yo lady with PMH of Previous lumbar spinal fusion, Multilevel spinal stenosis , Spondylolisethesis, Radiculopathy, Claudication now S/P 1. Removal of hardware. 2. Inspection of fusion mass. 3. L1, L2, L3, L4, L5 , S1 laminectomies. 4. L1, L2, L3, L4, L5, S1 osteotomies ( facetectomies). 5. L1-S1 posterior instrumentation. 6. T11-S1 posterolateral arthrodesis. 7. Durotomy repair. 8. Bone allograft. 9. Bone autograft. 10. Bone marrow aspiration. 11. Complex wound closure . cont pain management. not as well controlled today. incentive spirometry POD# 14. -GI, DVT prophylaxis. -leucocytosis, fever post-op: UA, urine cx, CXR requested. UA is negative. CXR with atelectasis but no acute infection. fever resolved with tylenol. -anemia: acute on chronic from CKD. post-op blood loss contributing. keep Hb>8. one unit PRBC transfused on 01/26. -YUMI on CKD III: avoid NSAIDs and nephrotoxins when possible. pre-renal azotemia: resolved with IV fluids -HTN: on toprol XL 50 mg daily, HCTZ 12.5 mg daily. -ID: oscar-operatively covered with cefazolin. -PT/OT/OOB as tolerated Condition: Stable - Instructions - Home Medications Comprehensive Discharge Medication List: Ambulatory Orders Aspirin Coated [Ecotrin -] 81 mg PO DAILY 01/21/19 Hydrochlorothiazide [Hctz -] 12.5 mg PO DAILY 01/21/19 Metoprolol Succinate 50 mg PO DAILY 01/21/19 Oxycodone HCl/Acetaminophen [Oxycodone-Acetaminophen 5-325] 1 each PO PRN PRN Cyanocobalamin [Vitamin B12 -] 1,000 mcg PO DAILY 01/24/19 Docusate Sodium [Colace] 100 mg PO DAILY 01/24/19 Famotidine [Pepcid] 40 mg PO DAILY 01/24/19 Folic Acid 0.8 mg PO DAILY 01/24/19 Multivit-Min/Iron/Folic/Lutein [Centrum Silver Women Tablet] 1 each PO DAILY
[2019-02-08 12:58] VITALS: BP 128/71; PULSE 107; TEMP 98
== END 2019-02-08 12:17 | DRG 457 ==
LOC: JSAMEDAYSX 06:04 → JICU 18:20 → J8W 01-25 18:26
PROVIDERS: ADMIT Orthopaedic Surgery Orthopaedic Surgery of the Spine; ATTEND Orthopaedic Surgery Orthopaedic Surgery of the Spine
PROC: 0SG30K1 Fusion of Lumbosacral Joint with Nonautologous Tissue Substitute, Posterior Approach, Posterior Column, Open Approach (ICD-10-PCS; 2019-01-24)
PROC: 01NB0ZZ Release Lumbar Nerve, Open Approach (ICD-10-PCS; 2019-01-24)
PROC: 00U20KZ Supplement Dura Mater with Nonautologous Tissue Substitute, Open Approach (ICD-10-PCS; 2019-01-24)
PROC: 07DR0ZZ Extraction of Iliac Bone Marrow, Open Approach (ICD-10-PCS; 2019-01-24)
PROC: B01BZZZ Fluoroscopy of Spinal Cord (ICD-10-PCS; 2019-01-24)
PROC: 0RGA0K1 Fusion of Thoracolumbar Vertebral Joint with Nonautologous Tissue Substitute, Posterior Approach, Posterior Column, Open Approach (ICD-10-PCS; principal; 2019-01-24 08:00)
PROC: 30233N1 Transfusion of Nonautologous Red Blood Cells into Peripheral Vein, Percutaneous Approach (ICD-10-PCS; 2019-01-26)
DX: M48.062 Spinal stenosis, lumbar region with neurogenic claudication (principal); N17.9 Acute kidney failure, unspecified; M40.10 Other secondary kyphosis, site unspecified; G96.11 Dural tear; J98.11 Atelectasis; D62 Acute posthemorrhagic anemia; M54.16 Radiculopathy, lumbar region; I10 Essential (primary) hypertension; I12.9 Hypertensive chronic kidney disease with stage 1 through stage 4 chronic kidney disease, or unspecified chronic kidney disease; N18.3 Chronic kidney disease, stage 3 (moderate); D72.829 Elevated white blood cell count, unspecified; D63.1 Anemia in chronic kidney disease; R50.82 Postprocedural fever
CPT/HCPCS: 36415; 36430; 36511; 71045-TC-FY; 71046-TC-FY; 76000-TC-FY; 80048; 81003; 82962; 83735; 84100; 85025; 85027; 86850; 86900; 86901; 86922; 88300-TC; 88305-TC; 90853; 94760; 97116-GP; 97161-GP; J0131; J1644; P9038; P9058